=== PATIENT | male | born 1965 | race Caucasian/White ===

== ENCOUNTER → 2018-03-15 07:05 | Outpatient (CLI) | payer BC, SELFPAY ==
[2018-03-15 08:40] LABS: Ferritin 97 ng/mL (8-388)
== END ==
PROVIDERS: PCP Emergency Medicine; Visit Provider Emergency Medicine
DX: E83.19 Other disorders of iron metabolism (principal)
CPT/HCPCS: 36415; 82728

== ENCOUNTER 2018-04-27 16:32 | Outpatient (REF) | payer BC, SELFPAY ==
[2018-04-27 20:26] LABS: Bilirubin Negative (Negative); Blood Trace-lysed (Negative); Clarity Cloudy; Glucose Negative (Negative); Ketones Negative (Negative); Leukocyte Esterase Negative (Negative); Nitrite Negative (Negative); Specific Gravity 1.025 (1.005-1.025); Urobilinogen 0.2 EU/dL (Up TO 0.2); pH 5.5 (5-8)
[2018-04-27 20:40] LABS: Bacteria Rare HPF (Negative); C & S Indicated? No; Casts Negative LPF (Negative); Crystals Negative HPF (Negative); Epithelial Cells Rare HPF (Negative); Mucus Negative (Negative); RBC 0-2 (0-2); WBC Negative HPF (0-5)
== END 2018-04-27 16:52 ==
LOC: LBN 16:32
PROVIDERS: PCP Emergency Medicine; Visit Provider Emergency Medicine
DX: N42.82 Prostatosis syndrome (principal)
CPT/HCPCS: 81003; 81015

== ENCOUNTER 2018-04-28 06:57 | Outpatient (CLI) | payer BC, SELFPAY ==
[2018-04-29 10:15] LABS: PSA, Screening 1.5 ng/ml (0-3.5)
== END 2018-04-28 07:17 ==
PROVIDERS: PCP Emergency Medicine; Visit Provider Emergency Medicine
DX: N42.82 Prostatosis syndrome (principal); Z12.5 Encounter for screening for malignant neoplasm of prostate
CPT/HCPCS: 36415; 84153

== ENCOUNTER 2018-06-01 07:01 | Outpatient (CLI) | payer BC, SELFPAY ==
[2018-06-01 07:34] LABS: Bilirubin Negative (Negative); Blood Trace-intact (Negative); Clarity Clear; Glucose Negative (Negative); Ketones Negative (Negative); Leukocyte Esterase Negative (Negative); Nitrite Negative (Negative); Specific Gravity 1.025 (1.005-1.025); Urobilinogen 0.2 EU/dL (Up TO 0.2)
[2018-06-01 07:52] LABS: Bacteria Rare HPF (Negative); C & S Indicated? No; Casts Negative LPF (Negative); Crystals Negative HPF (Negative); Epithelial Cells Rare HPF (Negative); Mucus Negative (Negative); RBC 0-2 (0-2); WBC Negative HPF (0-5)
[2018-06-01 09:27] LABS: BUN 19 mg/dL (7-18); CREATININE 1.01 mg/dL (0.70-1.30); Chloride 105 mmol/L (98-107); Glucose 106 mg/dL (70-100); Magnesium 1.9 mg/dL (1.8-2.4); Potassium 4.3 mmol/L (3.5-5.1); Sodium 140 mmol/L (136-145)
== END 2018-06-01 07:21 ==
PROVIDERS: PCP Emergency Medicine; Visit Provider Emergency Medicine
DX: R07.9 Chest pain, unspecified (principal); G89.29 Other chronic pain; R00.2 Palpitations; N41.9 Inflammatory disease of prostate, unspecified
CPT/HCPCS: 36415; 80048; 81003; 81015; 83735

== ENCOUNTER 2018-08-12 08:15 | Outpatient (CLI) | payer BC, SELFPAY ==
[2018-08-12 09:46] LABS: Ferritin 116 ng/mL (8-388)
== END 2018-08-12 08:35 ==
PROVIDERS: PCP Emergency Medicine; Visit Provider Emergency Medicine
DX: E83.119 Hemochromatosis, unspecified (principal)
CPT/HCPCS: 36415; 82728

== ENCOUNTER 2018-12-08 08:53 | Outpatient (CLI) | payer BC, SELFPAY ==
[2018-12-09 10:06] LABS: PSA, Screening 1.7 ng/ml (0-3.5)
== END 2018-12-08 09:13 ==
PROVIDERS: PCP Emergency Medicine; Visit Provider Nurse Practitioner Gerontology
DX: Z80.42 Family history of malignant neoplasm of prostate (principal); Z12.5 Encounter for screening for malignant neoplasm of prostate
CPT/HCPCS: 36415; 84153

== ENCOUNTER 2019-01-14 01:12 | Outpatient (CLI) | payer BC, SELFPAY ==
--- NOTE | 2019-01-14 07:24 | DI.US_ITS ---
SYMPTOMS/DIAGNOSIS: ENLARGED PROSTATE WITH LOWER URINARY TRACT SYMPTOMS, BENIGN PROSTATIC HYPERPLASIA, N40.1 ULTRASOUND-GUIDED PROSTATE BIOPSY: Ultrasound was provided for Dr. Moreland while performing a prostate biopsy. The prostate volume is calculated at 60 cc. Please see procedure note for details.
--- NOTE | 2019-01-14 15:00 | PROST_PTH ---
PATIENT: Khai Coyne LOC: [facility] U#:[id number] AGE/SX: 53/M ROOM: RE01/14/[address]: Vera Castellanos DNP : 1965 BED: DIS: 01/14/2019 SPEC #: [id number] RECD: 01/14/19 16:53 STATUS: VERÓNICA REDre #: [id number] SELINA: 01/14/19 15:[address]: Vera Castellanos DEPT: Surgical Specimen RECD BY: Beba Magana ENTERED: 01/14/19 16:54 SP TYPE: PROST OTHR DR: Amos Guzman DO Tissues: 1 - PROSTATE NEEDLE BIOPSY 2 - PROSTATE NEEDLE BIOPSY 3 - PROSTATE NEEDLE BIOPSY 4 - PROSTATE NEEDLE BIOPSY 5 - PROSTATE NEEDLE BIOPSY 6 - PROSTATE NEEDLE BIOPSY 7 - PROSTATE NEEDLE BIOPSY 8 - PROSTATE NEEDLE BIOPSY 9 - PROSTATE NEEDLE BIOPSY 10 - PROSTATE NEEDLE BIOPSY 11 - PROSTATE NEEDLE BIOPSY 12 - PROSTATE NEEDLE BIOPSY Procedures: GROSS AND MICRO LEVEL 4 Comments: [id number]
--- NOTE | 2019-01-14 15:14 | ROE_ITS ---
DATE OF PROCEDURE: January 14, 2019 PREPROCEDURE DIAGNOSIS: Family history of prostate cancer. POSTPROCEDURE DIAGNOSIS: Same. PROCEDURE: Transrectal ultrasound-guided biopsy of the prostate. SURGEON: Kevin Moreland M.D. ANESTHESIA: Local. COMPLICATIONS: None. HISTORY: This is a 53-year-old gentleman who has a strong history of family cancer. The patient him self has a PSA of 1.7. He has an enlarged prostate on digital rectal exam. He presents for ultrasou nd-guided biopsy. PROCEDURE: The patient was brought to the ultrasound suite on 01/14/19. He was given a preoperative antibiotic and mechanical bowel prep. Transrectal imaging of the prostate was performed using a variable megahertz transducer. The prostat e was imaged in transverse and longitudinal planes. The prostatic volume was calculated at 60 cc's. The peripheral zone appeared normal with no hypoechoic areas. Multiple nodular densities were seen w ithin the transition zone. A periprostatic nerve block was then performed using 1% Xylocaine. A total of twelve laterally-direc marc biopsies were taken and sent to Pathology for permanent section. The patient tolerated this procedure well with no complications. He will follow-up in 1 to 2 weeks t o review the surgical pathology. cc: Amos Guzman D.O.
== END 2019-01-14 01:32 ==
PROVIDERS: PCP Emergency Medicine; Visit Provider Nurse Practitioner Gerontology
DX: N40.1 Benign prostatic hyperplasia with lower urinary tract symptoms (principal); N41.0 Acute prostatitis; N41.1 Chronic prostatitis; N42.89 Other specified disorders of prostate; Z80.42 Family history of malignant neoplasm of prostate
CPT/HCPCS: 55700; 76942; 88305

== ENCOUNTER 2019-01-16 07:46 | Inpatient (IN) | payer BC, SELFPAY ==
[2019-01-16] VITALS (57 sets, daily range): BP systolic 113–162; BP diastolic 57–93; PULSE 67–100; RESP 10–25; TEMP 37–38.1; O2SAT 92–98
--- NOTE | 2019-01-16 08:13 | DI.CT_ITS ---
SYMPTOMS/DIAGNOSIS: ABD PAIN, CONCERN FOR POST PROCEDURAL PROSTATE ABSCESS CT OF THE ABDOMEN AND PELVIS: Images were performed from the lung bases through the ischial tuberosities after IV and without oral contrast. The lung bases are clear. The liver shows fatty infiltration. The gallbladder, spleen, pancreas and adrenals are unremarkable. There is no hydronephrosis or urinary tract calculi. There is a small left renal cyst. There is no bowel dilatation. The appendix appears normal. There is mild stranding in the perirectal fat. The prostate appears mildly enlarged. No focal mass, abscess, intraperitoneal or retroperitoneal air is seen. The bladder is unremarkable. There is a small density in the anterior subcutaneous fat superficial to the right rectus muscle, below the level of the umbilicus. This could be related to previous trauma, surgery or injection. There is no drainable abscess. IMPRESSION: Mild stranding in the perirectal fat may be related to recent prostate biopsy. There is no evidence of abscess.
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
[2019-01-16 08:24] LABS: Lactate-non-spesis 1.9 mmol/l (0.6-1.4)
[2019-01-16 08:24] LABS: Bilirubin Negative (Negative); Blood Moderate (Negative); Clarity Clear; Glucose Negative (Negative); Ketones Negative (Negative); Leukocyte Esterase Small (Negative); Nitrite Negative (Negative); Urobilinogen 0.2 EU/dL (Up TO 0.2)
[2019-01-16 08:27] LABS: Abs Immature Grans 0.03 k/cumm (0.0-0.09); Absolute Eosinophil Count 0.27 k/cumm (0.0-0.7); Absolute Lymphocyte Count 1.09 k/cumm (1.2-3.4); Basophils % 0.1; Immature Grans % 0.2; Mean Corp. HGB Concentration 36.2 g/dL (32.0-36.0); Mean Corpuscular Hemoglobin 32.4 pg (27.0-33.0); Mean Corpuscular Volume 89.7 fL (80-95); Mean Platelet Volume 12.3 fL (8.0-11.0); Monocytes % 6.6; Neutrophils % 83.1; Platelet Count 151 x1000/uL (130-400); RBC 5.24 m/cumm (4.50-6.00); RBC Distribution Width 12.5 % (11.8-14.1); White Blood Cell Count 13.57 k/cumm (4.4-10.8)
[2019-01-16 08:28] LABS: Absolute Basophil Count 0.01 k/cumm (0.0-0.2); Absolute Neutrophil Count 11.28 k/cumm (1.2-6.7)
--- NOTE | 2019-01-16 08:31 | INFECTION ---
iv placed labs drawn x1 set of bc obatained pt on library monitor family at bedside urine sample obtained sent to lab for testing will cont to monitor pt closly
[2019-01-16 08:32] LABS: Bacteria Few HPF (Negative); C & S Indicated? Yes; Casts Negative LPF (Negative); Crystals Negative HPF (Negative); Epithelial Cells Rare HPF (Negative); Mucus Negative (Negative)
[2019-01-16 08:42] LABS: ALT 68 U/L (12-78); AST 39 U/L (15-37); Albumin 3.9 g/dL (3.4-5.0); Alkaline Phosphatase 84 U/L (46-116); Anion Gap 7.9 mmol/L (3-11); BUN 11 mg/dL (7-18); Bilirubin, Total 0.7 mg/dL (0.2-1.0); CO2 28.1 mmol/L (21.0-32.0); CREATININE 1.05 mg/dL (0.70-1.30); Calcium 8.6 mg/dL (8.5-10.1); Chloride 103 mmol/L (98-107); Glucose 119 mg/dL (70-100); Potassium 4.1 mmol/L (3.5-5.1); Sodium 139 mmol/L (136-145); Total Protein 7.3 g/dL (6.4-8.2)
[2019-01-16] MEDS: Ketorolac 30 MG/ML VIAL IVP (09:06)
[2019-01-16] MEDS: levoFLOXacin 500 MG/100 ML BAG 100 MG IVPB (09:06)
[2019-01-16] MEDS: Normal Saline 1,000 ML 1000 ML IV (09:06)
[2019-01-16] MEDS: Normal Saline Flush 10 ML SYR IVP (09:07)
--- NOTE | 2019-01-16 09:26 | NUR.NOTE ---
ivf infusing pt medicated as per mdo with antibiotics and pain medication Nursing Note:
--- NOTE | 2019-01-16 09:36 | NUR.NOTE ---
pt to ct Nursing Note:
[2019-01-16] MEDS: Omnipaque 350 MG/ML 100 ML BTL IJ (09:52)
--- NOTE | 2019-01-16 10:04 | DI.VRAD_ITS ---
EXAM: CT Abdomen and Pelvis With Contrast EXAM DATE/TIME: 01/16/2019 8:15 AM CLINICAL HISTORY: 53 years old, male; Fever; Abdominal pain TECHNIQUE: Imaging protocol: Axial computed tomography images of the abdomen and pelvis with intravenous contrast. Coronal and sagittal reformatted images were created and reviewed. COMPARISON: US prostate biopsy 01/14/2019 2:22 PM FINDINGS: Liver: Diffuse fatty infiltration of the liver. Gallbladder and bile ducts: Unremarkable. No calcified stones. No ductal dilation. Pancreas: Unremarkable. No ductal dilation. Spleen: Unremarkable. No splenomegaly. Adrenals: Normal. No mass. Kidneys and ureters: Left renal cyst, measuring 17 mm. No left renal stone or hydronephrosis. Unremarkable right kidney and right ureter. Stomach and bowel: Unremarkable. No obstruction. No mucosal thickening. Appendix: No evidence of appendicitis. Intraperitoneal space: Unremarkable. No free air. No significant fluid collection. Vasculature: Unremarkable. No abdominal aortic aneurysm. Lymph nodes: Unremarkable. No enlarged lymph nodes. Bladder: Unremarkable as visualized. Reproductive: Unremarkable as visualized. Subperitoneal space: Minimal hazy density within the perirectal fat likely the sequelae of recent prostate biopsy. Bones/joints: No acute fracture. Soft tissues: Low-density collection measuring 30 mm transverse by 12 mm AP by 13 mm craniocaudad within the subcutaneous tissues of the anterior abdominal wall just superficial to the right rectus abdominis muscle with linear density tracking to the skin. Differential diagnosis includes resolving hematoma, post surgical change with residual fluid and/or scar versus small abscess. Correlate clinically. IMPRESSION: 1. No acute abdominopelvic process. 2. Low-density collection and stranding of the subcutaneous tissues of the anterior abdominal wall to the right of midline. Differential diagnosis includes resolving hematoma, postsurgical scar/fluid versus small abscess. Correlate clinically. 3. Minimal hazy density within the perirectal fat, likely the sequelae of recent prostate biopsy. Dictated and Authenticated by: Dennis Carter MD. Ordering:NIALL Jordan MD
[2019-01-16] MEDS: Acetaminophen 325 MG TAB 650 MG PO ×2 (10:20→16:51)
--- NOTE | 2019-01-16 10:54 | NUR.NOTE ---
pt resting in bed vs on cardiac moitor rest even unlabored pt able to use urinal at bedside family at bedside Nursing Note:
[2019-01-16 12:13] LABS: Lactate-non-spesis 1.6 mmol/l (0.6-1.4)
[2019-01-16] MEDS: Normal Saline 1,000 ML 125 ML IV ×2 (14:37→16:52)
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
--- NOTE | 2019-01-16 16:07 | NUR.NOTE ---
sbar to med surg nurse pt resting in bed ivf infusing no distress noted none stated Nursing Note:
[2019-01-16] MEDS: traMADol 50 MG TAB PO (17:36)
--- NOTE | 2019-01-16 17:46 | NUR.NOTE ---
Nursing Note: Pt to MS floor at 1626 accompanied by his adult daughters. Pt A&Ox3. VSS. Ambulated well from stretcher to bed. Pt c/o / abdominal pain and RASMUSSEN; APAP administered. Pt oriented to MS floor, call escoto, TV, etc. Call escoto within reach. RN will continue to monitor.
[2019-01-16] MEDS: VANCOMYCIN 2,000 MG in Normal Saline 500 ML 250 MG IV (21:11)
[2019-01-17] VITALS (12 sets, daily range): BP systolic 126–177; BP diastolic 73–88; PULSE 62–72; RESP 15–18; TEMP 36.5–38.1; O2SAT 95–100
[2019-01-17] MEDS: traMADol 50 MG TAB PO ×3 (02:16→17:19)
[2019-01-17] MEDS: Normal Saline 1,000 ML 125 ML IV (02:16)
[2019-01-17 06:55] LABS: Abs Immature Grans 0.03 k/cumm (0.0-0.09); Absolute Basophil Count 0.01 k/cumm (0.0-0.2); Absolute Eosinophil Count 0.25 k/cumm (0.0-0.7); Absolute Lymphocyte Count 1.07 k/cumm (1.2-3.4); Absolute Monocyte Count 0.83 k/cumm (0.11-0.7); Basophils % 0.1; Eosinophils % 2.3; HCT 43.4 % (40.0-50.0); HGB 15.3 g/dL (13.5-17.5); Immature Grans % 0.3; Lymphocytes % 9.7; Mean Corp. HGB Concentration 35.3 g/dL (32.0-36.0); Mean Corpuscular Hemoglobin 32.2 pg (27.0-33.0); Mean Corpuscular Volume 91.4 fL (80-95); Mean Platelet Volume 12.3 fL (8.0-11.0); Monocytes % 7.5; Neutrophils % 80.1; Platelet Count 127 x1000/uL (130-400); RBC 4.75 m/cumm (4.50-6.00); RBC Distribution Width 12.6 % (11.8-14.1); White Blood Cell Count 11.05 k/cumm (4.4-10.8)
[2019-01-17 06:56] LABS: Absolute Neutrophil Count 8.85 k/cumm (1.2-6.7)
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
[2019-01-17 07:11] LABS: ALT 41 U/L (12-78); AST 20 U/L (15-37); Albumin 3.1 g/dL (3.4-5.0); Alkaline Phosphatase 73 U/L (46-116); Anion Gap 8.2 mmol/L (3-11); BUN 11 mg/dL (7-18); Bilirubin, Total 0.9 mg/dL (0.2-1.0); CO2 24.8 mmol/L (21.0-32.0); CREATININE 0.96 mg/dL (0.70-1.30); Calcium 8.1 mg/dL (8.5-10.1); Chloride 106 mmol/L (98-107); Glucose 106 mg/dL (70-100); Sodium 139 mmol/L (136-145); Total Protein 6.3 g/dL (6.4-8.2)
[2019-01-17] MEDS: levoFLOXacin 500 MG/100 ML BAG 100 MG IVPB (08:14)
[2019-01-17] MEDS: Omeprazole 20 MG CAPCR PO (08:15)
[2019-01-17] MEDS: Tamsulosin 0.4 MG CAPCR 0.8 MG PO (08:15)
[2019-01-17] MEDS: Enoxaparin 40 MG/0.4 ML SYR SC (08:15)
[2019-01-17 08:52] LABS: Calculated LDL 98; Cholesterol 154 mg/dL (50-200); Ferritin 139 ng/mL (8-388); HDL Cholesterol 37 mg/dL (40-60); Triglyceride 95 mg/dL (30-150)
[2019-01-17] MEDS: VANCOMYCIN 2,000 MG in Normal Saline 500 ML 250 MG IV ×2 (09:30→18:05)
--- NOTE | 2019-01-17 10:33 | PHARADMIT ---
Admission Pharmacy Clinical Review fever, abscess Code Status Full Code Current Weight 129.274 kg Renally Cleared and Narrow Therapeutic Index Meds Crcl 102.0 mL/min current meds okay QTc Value / Action Taken n/a BP Control, Fever BP 166/76 Tmax 38.1 yesterday evening Electrolytes reviewed within normal limits DVT Prophylaxis enoxaparin Opiate Usage / Scheduled Bowel Regimen Ordered prn/prn Plt/SCr for Heparin / Enoxaparin plt 127 SCr 0.96 INR for Warfarin n/a H/H stable, WBC/Bands h/h 15.3/43.4 wbc 11.05 Antibiotic appropriateness levofloxacin, vanco and metronidazole Cultures and Sensitivities one blood culture no growth @ 24 hours, other is pending urine culture pending Surgical ABX d/c within 24 hr n/a DM control / Insulin Dosing BG 106 none Heart Failure (Check EF%) (ZULEYKA's, B-Block, Diuretics) none IV to PO Switch n/a Home Meds Reviewed yes Home Meds Not Ordered ibuprofen, oxybutynin Comments urology consult; watch for micro results
[2019-01-17] MEDS: metroNIDAZOLE 500 MG/100 ML BAG 100 MG IVPB ×2 (11:54→20:42)
--- NOTE | 2019-01-17 14:28 | PGE_ITS ---
Date of Service Date of service: 01/17/19 Time of Service: 14:28 Assessment and Plan (1) Enlarged prostate with lower urinary tract symptoms (LUTS): Current visit: No Status: Acute Recent prostate biopsy on 01/14/[address] Moreland. Strong family history of Prostate Ca. Presented with fever, chills, CT reveals Minimal hazy density within the perirectal fat, likely the sequelae of recent prostate biopsy, and low-density collection and stranding of the subcutaneous tissues of the anterior abdominal wall to the right of midline. Dr. Moreland indicates that the subcutaneous abdominal wall changes seen on CT scan would not be an expected result of the recent procedure, however, he did have a lipoma removed from this area in the last year. Dr. Moreland agrees with broad-spectrum antibiotics until culture results are available. Dr. Moreland notes that the major concern here would be antibiotic resistant bowel curt. The patient received 3 days of Levaquin around the time of the surgery. He is currently on Vanco, Levaquin and Flagyl was added today in light of the concern for resistant bowel curt. Continue flomax. Continue current treatment, follow cultures, Urology to continue to follow. (2) Hemochromatosis: Current visit: No Status: Chronic Hemoglobin and hematocrit stable at 15.3 and 43.4. Continue to follow. (3) Leukocytosis: Current visit: Yes Status: Acute Improving. As above. Continue current regimen, continue to follow cultures. (4) DVT prophylaxis: Current visit: Yes Status: Acute Subcutaneous lovenox. \\ This case was discussed with Dr. Block who is in agreement. Subjective Interval history since last seen: Mr. Coyne reports feeling better today. He denies fever, chills, shakes. He has a headache. He denies cough, shortness of breath, wheezing, chest pain/pressure, palpitations. He reports a poor appetite, no nausea, vomiting or diarrhea. He endorses urinary frequency, some dysuria and hematuria. He was seen by Urology, Dr. Moreland's note indicates that it would be unlikely that he would develop a prosthetic or periprosthetic abscess this soon after his biopsy. He indicates that the subcutaneous abdominal wall changes seen on CT scan would not be an expected result of the recent procedure, however, he did have a lipoma removed from this area in the last year. Dr. Moreland agrees with broad-spectrum antibiotics until culture results are available. Exam Narrative Exam Narrative: General: well appearing, overweight man, appears stated age, alert and oriented, in no acute distress. HEENT: normocephalic, atraumatic, pupils equal and symmetrical, EOMI, mucous membranes moist. Neck: supple, no JVD. Respiratory: respirations even and unlabored, lung sounds clear bilaterally. Cardiovascular: heart has regular rate and rhythm, no murmur appreciated. GI: round abdomen, normoactive bowel sounds, soft, nontender on palpation. Extremities: no clubbing, cyanosis or edema. Objective Objective Clinical Data: Abnormal lab results 01/17/19 01/17/19 01/17/19 Range/Units 06:20 06:20 06:20 WBC 11.05 H (4.4-10.8) k/cumm Plt Count 127 L (130-400) x1000/uL MPV 12.3 H (8.0-11.0) fL Absolute Neutrophils 8.85 H (1.2-6.7) k/cumm Absolute Lymphocytes 1.07 L (1.2-3.4) k/cumm Absolute Monocytes 0.83 H (0.11-0.7) k/cumm Glucose 106 H (70-100) mg/dL Calcium 8.1 L (8.5-10.1) mg/dL Total Protein 6.3 L (6.4-8.2) g/dL Albumin 3.1 L (3.4-5.0) g/dL HDL Cholesterol 37 L (40-60) mg/dL Vital Signs Temperature 36.6 C 01/17/19 12:21 Temperature Source Tympanic 01/17/19 12:21 Pulse 67 01/17/19 12:21 Pulse Rhythm Irregular 01/17/19 08:20 Pulse 92 H 01/16/19 14:20 Respiratory Rate 18 01/17/19 12:21 Respiratory Effort Non-Labored 01/17/19 08:20 Respiratory Depth Normal 01/17/19 08:20 Respiratory Pattern Normal 01/17/19 08:20 Blood Pressure 166/76 H 01/17/19 12:21 Blood Pressure Mean 82 01/16/19 14:16 Blood Pressure Position Sitting 01/16/19 07:55 Pulse Oximetry 97 01/17/19 12:21 Oxygen Delivery Method Room Air 01/17/19 12:21 Oxygen Flow Rate 0 01/17/19 12:21 Pain Level 4 01/17/19 08:15 Comment 01/17/19 07:15 Intake & Output 01/16/19 01/17/19 01/17/19 23:59 11:59 23:59 Intake Total 2320.833 / 3420.833 2831.25 / 3171.25 340 / 3171.25 Output Total 750 / 750 1225 / 1900 675 / 1900 Balance 1570.833 / 2670.833 1606.25 / 1271.25 -335 / 1271.25 Weight 129.274 kg Intake: IV 1320.833 / 2420.833 1981.25 / 2080.25 100 / 2080.25 Oral 1000 / 1000 850 / 1090 240 / 1090 Output: Urine 750 / 750 1225 / 1900 675 / 1900 Other: Urine Color Yellow Yellow Yellow Urine Appearance Clear Clear Clear Urine Odor Normal Normal Normal Comment Pt reports stop and go when urinating. No other c/o issues. Voiding Methods Urinal Urinal Urinal Laboratory Results WBC 11.05 k/cumm (4.4-10.8) H 01/17/19 06:20 RBC 4.75 m/cumm (4.50-6.00) 01/17/19 06:20 Hgb 15.3 g/dL (13.5-17.5) 01/17/19 06:20 Hct 43.4 % (40.0-50.0) 01/17/19 06:20 MCV 91.4 fL (80-95) 01/17/19 06:20 MCH 32.2 pg (27.0-33.0) 01/17/19 06:20 MCHC 35.3 g/dL (32.0-36.0) 01/17/19 06:20 RDW 12.6 % (11.8-14.1) 01/17/19 06:20 Plt Count 127 x1000/uL (130-400) L 01/17/19 06:20 MPV 12.3 fL (8.0-11.0) H 01/17/19 06:20 Immature Gran % 0.3 01/17/19 06:20 Neutrophils % 80.1 01/17/19 06:20 Lymphocytes % 9.7 01/17/19 06:20 Monocytes % 7.5 01/17/19 06:20 Eosinophils % 2.3 01/17/19 06:20 Basophils % 0.1 01/17/19 06:20 Absolute Neutrophils 8.85 k/cumm (1.2-6.7) H 01/17/19 06:20 Absolute Lymphocytes 1.07 k/cumm (1.2-3.4) L 01/17/19 06:20 Absolute Monocytes 0.83 k/cumm (0.11-0.7) H 01/17/19 06:20 Absolute Eosinophils 0.25 k/cumm (0.0-0.7) 01/17/19 06:20 Absolute Basophils 0.01 k/cumm (0.0-0.2) 01/17/19 06:20 Sodium 139 mmol/L (136-145) 01/17/19 06:20 Potassium 4.0 mmol/L (3.5-5.1) 01/17/19 06:20 Chloride 106 mmol/L (98-107) 01/17/19 06:20 Carbon Dioxide 24.8 mmol/L (21.0-32.0) 01/17/19 06:20 Anion Gap 8.2 mmol/L (3-11) 01/17/19 06:20 BUN 11 mg/dL (7-18) 01/17/19 06:20 Creatinine 0.96 mg/dL (0.70-1.30) 01/17/19 06:20 Estimated GFR/1.73 m2 >= 60.00 (mL/min/1.73m2) 01/17/19 06:20 Glucose 106 mg/dL (70-100) H 01/17/19 06:20 Lactate 1.6 mmol/l (0.6-1.4) H 01/16/19 12:09 Calcium 8.1 mg/dL (8.5-10.1) L 01/17/19 06:20 Ferritin 139 ng/mL (8-388) 01/17/19 06:20 Total Bilirubin 0.9 mg/dL (0.2-1.0) 01/17/19 06:20 AST 20 U/L (15-37) 01/17/19 06:20 ALT 41 U/L (12-78) 01/17/19 06:20 Alkaline Phosphatase 73 U/L (46-116) 01/17/19 06:20 Total Protein 6.3 g/dL (6.4-8.2) L 01/17/19 06:20 Albumin 3.1 g/dL (3.4-5.0) L 01/17/19 06:20 Triglycerides 95 mg/dL (30-150) 01/17/19 06:20 Total Cholesterol 154 mg/dL (50-200) 01/17/19 06:20 LDL Cholesterol, Calc 98 01/17/19 06:20 HDL Cholesterol 37 mg/dL (40-60) L 01/17/19 06:20 Urine Color Yellow (Yellow) 01/16/19 08:15 Urine Clarity Clear 01/16/19 08:15 Urine pH 8.0 (5-8) 01/16/19 08:15 Ur Specific [place] 1.020 (1.005-1.025) 01/16/19 08:15 Urine Protein Negative mg/dL (Negative) 01/16/19 08:15 Urine Ketones Negative mg/dL (Negative) 01/16/19 08:15 Urine Blood Moderate (Negative) H 01/16/19 08:15 Urine Nitrite Negative (Negative) 01/16/19 08:15 Urine Bilirubin Negative (Negative) 01/16/19 08:15 Urine Urobilinogen 0.2 EU/dL (Up TO 0.2) 01/16/19 08:15 Ur Leukocyte Esterase Small (Negative) H 01/16/19 08:15 Urine RBC 10-20 (0-2) H 01/16/19 08:15 Urine WBC 10-20 HPF (0-5) 01/16/19 08:15 Ur Epithelial Cells Rare HPF (Negative) 01/16/19 08:15 Urine Crystals Negative HPF (Negative) 01/16/19 08:15 Urine Bacteria Few HPF (Negative) 01/16/19 08:15 Urine Casts Negative LPF (Negative) 01/16/19 08:15 Urine Mucus Negative (Negative) 01/16/19 08:15 Ur Culture Indicated? Yes 01/16/19 08:15 Urine Glucose Negative mg/dL (Negative) 01/16/19 08:15
[2019-01-17] MEDS: Normal Saline 1,000 ML 100 ML IV (14:32)
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
[2019-01-17] MEDS: Acetaminophen 325 MG TAB 650 MG PO (20:13)
[2019-01-18] MEDS: Normal Saline 1,000 ML 100 ML IV (01:49)
[2019-01-18] MEDS: metroNIDAZOLE 500 MG/100 ML BAG 100 MG IVPB (03:47)
[2019-01-18 03:48] VITALS: BP 129/66; PULSE 71; RESP 16; TEMP 36.5; O2SAT 96
[2019-01-18] MEDS: VANCOMYCIN 2,000 MG in Normal Saline 500 ML 250 MG IV (05:23)
[2019-01-18 07:00] VITALS: BP 147/85; PULSE 64; RESP 16; TEMP 36.4; O2SAT 95
--- NOTE | 2019-01-18 07:01 | PGE_ITS ---
Date of Service Date of service: 01/18/19 Time of Service: 06:56 Assessment and Plan (1) Leukocytosis: Current visit: Yes Status: Acute Clinically, he is improving. As long as his blood cultures show no growth and his WBC is improving, we may want to transition him to oral antibiotics. With negative cultures, it is hard to tell exactly which regimen to use - maybe Levaquin with Flagyl? Subjective Interval history since last seen: He denies chills or rigors. He is voiding a bit better. Exam Narrative Exam Narrative: He does not appear septic or toxic His urine is clear His labs from this morning are pending His initial blood and urine cultures are showing no growth (he had received 3 days of Levaquin before they were obtained) Objective Objective Clinical Data: Abnormal lab results 01/17/19 01/17/19 01/17/19 Range/Units 06:20 06:20 06:20 WBC 11.05 H (4.4-10.8) k/cumm Plt Count 127 L (130-400) x1000/uL MPV 12.3 H (8.0-11.0) fL Absolute Neutrophils 8.85 H (1.2-6.7) k/cumm Absolute Lymphocytes 1.07 L (1.2-3.4) k/cumm Absolute Monocytes 0.83 H (0.11-0.7) k/cumm Glucose 106 H (70-100) mg/dL Calcium 8.1 L (8.5-10.1) mg/dL Total Protein 6.3 L (6.4-8.2) g/dL Albumin 3.1 L (3.4-5.0) g/dL HDL Cholesterol 37 L (40-60) mg/dL Vital Signs Temperature 36.5 C 01/18/19 03:48 Temperature Source Tympanic 01/18/19 03:48 Pulse 71 01/18/19 03:48 Pulse Rhythm Regular 01/17/19 20:25 Pulse 92 H 01/16/19 14:20 Respiratory Rate 16 01/18/19 03:48 Respiratory Effort Non-Labored 01/17/19 20:25 Respiratory Depth Normal 01/17/19 20:25 Respiratory Pattern Normal 01/17/19 20:25 Blood Pressure 129/66 01/18/19 03:48 Blood Pressure Mean 82 01/16/19 14:16 Blood Pressure Position Sitting 01/16/19 07:55 Pulse Oximetry 96 01/18/19 03:48 Oxygen Delivery Method Room Air 01/18/19 03:48 Oxygen Flow Rate 0 01/18/19 03:48 Pain Level 3 01/17/19 17:19 Comment 01/17/19 11:40 Intake & Output 01/17/19 01/17/19 01/18/19 11:59 23:59 11:59 Intake Total 3071.25 / 5957.917 2886.667 / 5957.917 1010.001 / 1010.001 Output Total 1225 / 4200 2975 / 4200 400 / 400 Balance 1846.25 / 1757.917 -88.333 / 1757.917 610.001 / 610.001 Intake: IV 1981.25 / 3177.917 1196.667 / 3177.917 760.001 / 760.001 Oral 1090 / 2780 1690 / 2780 250 / 250 Output: Urine 1225 / 4200 2975 / 4200 400 / 400 Other: Urine Color Yellow Yellow Yellow Urine Appearance Clear Clear Clear Urine Odor Normal Normal Voiding Methods Urinal Urinal Urinal Laboratory Results WBC 11.05 k/cumm (4.4-10.8) H 01/17/19 06:20 RBC 4.75 m/cumm (4.50-6.00) 01/17/19 06:20 Hgb 15.3 g/dL (13.5-17.5) 01/17/19 06:20 Hct 43.4 % (40.0-50.0) 01/17/19 06:20 MCV 91.4 fL (80-95) 01/17/19 06:20 MCH 32.2 pg (27.0-33.0) 01/17/19 06:20 MCHC 35.3 g/dL (32.0-36.0) 01/17/19 06:20 RDW 12.6 % (11.8-14.1) 01/17/19 06:20 Plt Count 127 x1000/uL (130-400) L 01/17/19 06:20 MPV 12.3 fL (8.0-11.0) H 01/17/19 06:20 Immature Gran % 0.3 01/17/19 06:20 Neutrophils % 80.1 01/17/19 06:20 Lymphocytes % 9.7 01/17/19 06:20 Monocytes % 7.5 01/17/19 06:20 Eosinophils % 2.3 01/17/19 06:20 Basophils % 0.1 01/17/19 06:20 Absolute Neutrophils 8.85 k/cumm (1.2-6.7) H 01/17/19 06:20 Absolute Lymphocytes 1.07 k/cumm (1.2-3.4) L 01/17/19 06:20 Absolute Monocytes 0.83 k/cumm (0.11-0.7) H 01/17/19 06:20 Absolute Eosinophils 0.25 k/cumm (0.0-0.7) 01/17/19 06:20 Absolute Basophils 0.01 k/cumm (0.0-0.2) 01/17/19 06:20 Sodium 139 mmol/L (136-145) 01/17/19 06:20 Potassium 4.0 mmol/L (3.5-5.1) 01/17/19 06:20 Chloride 106 mmol/L (98-107) 01/17/19 06:20 Carbon Dioxide 24.8 mmol/L (21.0-32.0) 01/17/19 06:20 Anion Gap 8.2 mmol/L (3-11) 01/17/19 06:20 BUN 11 mg/dL (7-18) 01/17/19 06:20 Creatinine 0.96 mg/dL (0.70-1.30) 01/17/19 06:20 Estimated GFR/1.73 m2 >= 60.00 (mL/min/1.73m2) 01/17/19 06:20 Glucose 106 mg/dL (70-100) H 01/17/19 06:20 Lactate 1.6 mmol/l (0.6-1.4) H 01/16/19 12:09 Calcium 8.1 mg/dL (8.5-10.1) L 01/17/19 06:20 Ferritin 139 ng/mL (8-388) 01/17/19 06:20 Total Bilirubin 0.9 mg/dL (0.2-1.0) 01/17/19 06:20 AST 20 U/L (15-37) 01/17/19 06:20 ALT 41 U/L (12-78) 01/17/19 06:20 Alkaline Phosphatase 73 U/L (46-116) 01/17/19 06:20 Total Protein 6.3 g/dL (6.4-8.2) L 01/17/19 06:20 Albumin 3.1 g/dL (3.4-5.0) L 01/17/19 06:20 Triglycerides 95 mg/dL (30-150) 01/17/19 06:20 Total Cholesterol 154 mg/dL (50-200) 01/17/19 06:20 LDL Cholesterol, Calc 98 01/17/19 06:20 HDL Cholesterol 37 mg/dL (40-60) L 01/17/19 06:20 Urine Color Yellow (Yellow) 01/16/19 08:15 Urine Clarity Clear 01/16/19 08:15 Urine pH 8.0 (5-8) 01/16/19 08:15 Ur Specific [place] 1.020 (1.005-1.025) 01/16/19 08:15 Urine Protein Negative mg/dL (Negative) 01/16/19 08:15 Urine Ketones Negative mg/dL (Negative) 01/16/19 08:15 Urine Blood Moderate (Negative) H 01/16/19 08:15 Urine Nitrite Negative (Negative) 01/16/19 08:15 Urine Bilirubin Negative (Negative) 01/16/19 08:15 Urine Urobilinogen 0.2 EU/dL (Up TO 0.2) 01/16/19 08:15 Ur Leukocyte Esterase Small (Negative) H 01/16/19 08:15 Urine RBC 10-20 (0-2) H 01/16/19 08:15 Urine WBC 10-20 HPF (0-5) 01/16/19 08:15 Ur Epithelial Cells Rare HPF (Negative) 01/16/19 08:15 Urine Crystals Negative HPF (Negative) 01/16/19 08:15 Urine Bacteria Few HPF (Negative) 01/16/19 08:15 Urine Casts Negative LPF (Negative) 01/16/19 08:15 Urine Mucus Negative (Negative) 01/16/19 08:15 Ur Culture Indicated? Yes 01/16/19 08:15 Urine Glucose Negative mg/dL (Negative) 01/16/19 08:15
[2019-01-18 07:12] LABS: Abs Immature Grans 0.01 k/cumm (0.0-0.09); Absolute Basophil Count 0.02 k/cumm (0.0-0.2); Absolute Eosinophil Count 0.56 k/cumm (0.0-0.7); Absolute Lymphocyte Count 1.01 k/cumm (1.2-3.4); Absolute Neutrophil Count 4.32 k/cumm (1.2-6.7); Basophils % 0.3; Eosinophils % 8.6; HGB 14.7 g/dL (13.5-17.5); Immature Grans % 0.2; Lymphocytes % 15.5; Mean Corpuscular Hemoglobin 32.1 pg (27.0-33.0); Mean Corpuscular Volume 91.7 fL (80-95); Monocytes % 9.2; Neutrophils % 66.2; Platelet Count 122 x1000/uL (130-400); RBC 4.58 m/cumm (4.50-6.00); RBC Distribution Width 12.6 % (11.8-14.1); White Blood Cell Count 6.52 k/cumm (4.4-10.8)
[2019-01-18 07:42] LABS: ALT 38 U/L (12-78); AST 19 U/L (15-37); Albumin 2.9 g/dL (3.4-5.0); Alkaline Phosphatase 68 U/L (46-116); BUN 11 mg/dL (7-18); Bilirubin, Total 0.7 mg/dL (0.2-1.0); CREATININE 1.05 mg/dL (0.70-1.30); Calcium 8.2 mg/dL (8.5-10.1); Chloride 105 mmol/L (98-107); Glucose 106 mg/dL (70-100); Sodium 139 mmol/L (136-145); Total Protein 6.3 g/dL (6.4-8.2)
[2019-01-18] MEDS: Tamsulosin 0.4 MG CAPCR 0.8 MG PO (07:43)
[2019-01-18] MEDS: Omeprazole 20 MG CAPCR PO (07:43)
[2019-01-18] MEDS: Enoxaparin 40 MG/0.4 ML SYR SC (07:44)
--- NOTE | 2019-01-18 07:52 | PDOC.CMPRO ---
- If Service Date Differs Date of service: 01/18/19 Time of Service: 07:52 Care Management Progress Note S/O: Cedric was sitting up in the chair when CM came to visit. His daughter was visiting and they were laughing and conversing animatedly. Cedric states he feels much better and hopes he can be discharged later today. Since he was febrile again last night, per MD, he may need to stay one more night. His blood and urine cultures remain negative at 48 hours. A: Cedric is a very pleasant gentleman admitted to [facility] on 01/16/19 with an enlarged prostate and lower urinary tract symptoms. P: Cedric is undergoing testing to ascertain if he has a UTI. He will likely be discharged home when he has been afebrile for 24 hours and culture results are final. he will not need any new services. CM will continue to provide support to patient, family and discharge planning process.
[2019-01-18] MEDS: levoFLOXacin 500 MG/100 ML BAG 100 MG IVPB (09:35)
[2019-01-18 11:30] VITALS: BP 144/77; PULSE 61; RESP 16; TEMP 36.3; O2SAT 100
[2019-01-18] MEDS: metroNIDAZOLE 500 MG TAB PO ×2 (12:56→20:07)
[2019-01-18 13:44] LABS: Vancomycin, Trough 14.5 ug/mL (10.0-20.0)
--- NOTE | 2019-01-18 14:12 | W.PM.PROGNOT ---
Date of Service Date of service: 01/18/19 Time of Service: 14:12 Assessment and Plan (1) Enlarged prostate with lower urinary tract symptoms (LUTS): Current visit: No Status: Acute Recent prostate biopsy on 01/14/[address] Moreland. Strong family history of Prostate Ca. Presented with fever, chills, CT revealed Minimal hazy density within the perirectal fat, likely the sequelae of recent prostate biopsy, and low-density collection and stranding of the subcutaneous tissues of the anterior abdominal wall to the right of midline. Dr. Moreland indicates that the subcutaneous abdominal wall changes seen on CT scan would not be an expected result of the recent procedure, however, he did have a lipoma removed from this area in the last year. He has been on broad-spectrum antibiotics pending culture results His cultures have yielded no growth to date. Dr. Moreland notes that the major concern here would be antibiotic resistant bowel curt. The patient received 3 days of Levaquin around the time of the surgery. He has been on Vanco, Levaquin and Flagyl was added in light of the concern for resistant bowel curt. Continue flomax. He has been seen by Dr. Moreland who agrees with transition to oral antibiotics. He has been changed to PO flagyl and levaquin. Monitor overnight. If he remains afebrile, he may be discharged home on oral antibiotics with Urology follow up. (2) Hemochromatosis: Current visit: No Status: Chronic Hemoglobin and hematocrit stable. Continue to follow. (3) Leukocytosis: Current visit: Yes Status: Acute Resolved. Continue current regimen, continue to follow cultures. (4) DVT prophylaxis: Current visit: Yes Status: Acute Subcutaneous lovenox. \\ This case was discussed with Dr. Block who is in agreement. Subjective Interval history since last seen: Mr. Coyne reports feeling better. He was hoping to be discharged today, however, he had a fever last night. He is afebrile this morning. He has been changed to oral antibiotics. He no longer reports a headache, he denies cough, shortness of breath, wheezing, chest pain/pressure, palpitations. He reports that his appetite has improved, he is eating and drinking without nausea, vomiting or diarrhea. He endorses urinary frequency, some dysuria, the hematuria has resolved. His blood and urine cultures have yielded no growth do date. He is also being followed by Urology. Exam Narrative Exam Narrative: General: well appearing, overweight man, appears stated age, alert and oriented, in no acute distress. Ambulating in his room. HEENT: normocephalic, atraumatic, pupils round and symmetrical, EOMI, mucous membranes moist. Neck: supple, no JVD. Respiratory: respirations even and unlabored, lung sounds clear bilaterally. Cardiovascular: heart has regular rate and rhythm, no murmur appreciated. GI: round abdomen, normoactive bowel sounds, soft, nontender on palpation. Extremities: no clubbing, cyanosis or edema. Objective Objective Clinical Data: Abnormal lab results 01/18/19 01/18/19 Range/Units 06:18 06:18 Plt Count 122 L (130-400) x1000/uL MPV 12.0 H (8.0-11.0) fL Absolute Lymphocytes 1.01 L (1.2-3.4) k/cumm Glucose 106 H (70-100) mg/dL Calcium 8.2 L (8.5-10.1) mg/dL Total Protein 6.3 L (6.4-8.2) g/dL Albumin 2.9 L (3.4-5.0) g/dL Vital Signs Temperature 36.3 C L 01/18/19 11:30 Temperature Source Tympanic 01/18/19 11:30 Pulse 61 01/18/19 11:30 Pulse Rhythm Irregular 01/18/19 07:59 Pulse 92 H 01/16/19 14:20 Respiratory Rate 16 01/18/19 11:30 Respiratory Effort Non-Labored 01/18/19 07:59 Respiratory Depth Normal 01/18/19 07:59 Respiratory Pattern Normal 01/18/19 07:59 Blood Pressure 144/77 H 01/18/19 11:30 Blood Pressure Mean 82 01/16/19 14:16 Blood Pressure Position Sitting 01/16/19 07:55 Pulse Oximetry 100 01/18/19 11:30 Oxygen Delivery Method Room Air 01/18/19 11:30 Oxygen Flow Rate 0 01/18/19 11:30 Pain Level 0 01/18/19 11:30 Comment 01/17/19 11:40 Intake & Output 01/17/19 01/18/19 01/18/19 23:59 11:59 23:59 Intake Total 2886.667 / 5957.917 1730.001 / 1850.001 120 / 1850.001 Output Total 2975 / 4200 400 / 400 Balance -88.333 / 6085.057 1435.001 / 1450.001 120 / 1450.001 Intake: IV 1196.667 / 3177.917 1360.001 / 1360.001 Oral 1690 / 2780 370 / 490 120 / 490 Output: Urine 2975 / 4200 400 / 400 Other: Urine Color Yellow Yellow Urine Appearance Clear Clear Urine Odor Normal Voiding Methods Urinal Urinal Laboratory Results WBC 6.52 k/cumm (4.4-10.8) D 01/18/19 06:18 RBC 4.58 m/cumm (4.50-6.00) 01/18/19 06:18 Hgb 14.7 g/dL (13.5-17.5) 01/18/19 06:18 Hct 42.0 % (40.0-50.0) 01/18/19 06:18 MCV 91.7 fL (80-95) 01/18/19 06:18 MCH 32.1 pg (27.0-33.0) 01/18/19 06:18 MCHC 35.0 g/dL (32.0-36.0) 01/18/19 06:18 RDW 12.6 % (11.8-14.1) 01/18/19 06:18 Plt Count 122 x1000/uL (130-400) L 01/18/19 06:18 MPV 12.0 fL (8.0-11.0) H 01/18/19 06:18 Immature Gran % 0.2 01/18/19 06:18 Neutrophils % 66.2 01/18/19 06:18 Lymphocytes % 15.5 01/18/19 06:18 Monocytes % 9.2 01/18/19 06:18 Eosinophils % 8.6 01/18/19 06:18 Basophils % 0.3 01/18/19 06:18 Absolute Neutrophils 4.32 k/cumm (1.2-6.7) 01/18/19 06:18 Absolute Lymphocytes 1.01 k/cumm (1.2-3.4) L 01/18/19 06:18 Absolute Monocytes 0.60 k/cumm (0.11-0.7) 01/18/19 06:18 Absolute Eosinophils 0.56 k/cumm (0.0-0.7) 01/18/19 06:18 Absolute Basophils 0.02 k/cumm (0.0-0.2) 01/18/19 06:18 Sodium 139 mmol/L (136-145) 01/18/19 06:18 Potassium 4.0 mmol/L (3.5-5.1) 01/18/19 06:18 Chloride 105 mmol/L (98-107) 01/18/19 06:18 Carbon Dioxide 28.0 mmol/L (21.0-32.0) 01/18/19 06:18 Anion Gap 6.0 mmol/L (3-11) 01/18/19 06:18 BUN 11 mg/dL (7-18) 01/18/19 06:18 Creatinine 1.05 mg/dL (0.70-1.30) 01/18/19 06:18 Estimated GFR/1.73 m2 >= 60.00 (mL/min/1.73m2) 01/18/19 06:18 Glucose 106 mg/dL (70-100) H 01/18/19 06:18 Lactate 1.6 mmol/l (0.6-1.4) H 01/16/19 12:09 Calcium 8.2 mg/dL (8.5-10.1) L 01/18/19 06:18 Ferritin 139 ng/mL (8-388) 01/17/19 06:20 Total Bilirubin 0.7 mg/dL (0.2-1.0) 01/18/19 06:18 AST 19 U/L (15-37) 01/18/19 06:18 ALT 38 U/L (12-78) 01/18/19 06:18 Alkaline Phosphatase 68 U/L (46-116) 01/18/19 06:18 Total Protein 6.3 g/dL (6.4-8.2) L 01/18/19 06:18 Albumin 2.9 g/dL (3.4-5.0) L 01/18/19 06:18 Triglycerides 95 mg/dL (30-150) 01/17/19 06:20 Total Cholesterol 154 mg/dL (50-200) 01/17/19 06:20 LDL Cholesterol, Calc 98 01/17/19 06:20 HDL Cholesterol 37 mg/dL (40-60) L 01/17/19 06:20 Urine Color Yellow (Yellow) 01/16/19 08:15 Urine Clarity Clear 01/16/19 08:15 Urine pH 8.0 (5-8) 01/16/19 08:15 Ur Specific [place] 1.020 (1.005-1.025) 01/16/19 08:15 Urine Protein Negative mg/dL (Negative) 01/16/19 08:15 Urine Ketones Negative mg/dL (Negative) 01/16/19 08:15 Urine Blood Moderate (Negative) H 01/16/19 08:15 Urine Nitrite Negative (Negative) 01/16/19 08:15 Urine Bilirubin Negative (Negative) 01/16/19 08:15 Urine Urobilinogen 0.2 EU/dL (Up TO 0.2) 01/16/19 08:15 Ur Leukocyte Esterase Small (Negative) H 01/16/19 08:15 Urine RBC 10-20 (0-2) H 01/16/19 08:15 Urine WBC 10-20 HPF (0-5) 01/16/19 08:15 Ur Epithelial Cells Rare HPF (Negative) 01/16/19 08:15 Urine Crystals Negative HPF (Negative) 01/16/19 08:15 Urine Bacteria Few HPF (Negative) 01/16/19 08:15 Urine Casts Negative LPF (Negative) 01/16/19 08:15 Urine Mucus Negative (Negative) 01/16/19 08:15 Ur Culture Indicated? Yes 01/16/19 08:15 Urine Glucose Negative mg/dL (Negative) 01/16/19 08:15 Vancomycin Trough 14.5 ug/mL (10.0-20.0) 01/18/19 13:10
[2019-01-18 15:53] VITALS: BP 124/69; PULSE 55; RESP 18; TEMP 36.8; O2SAT 99
--- NOTE | 2019-01-18 16:13 | CMPROGNOTE_ITS ---
- If Service Date Differs Date of service: 01/18/19 Time of Service: 07:52 Care Management Progress Note S/O: Cedric was sitting up in the chair when CM came to visit. His daughter was visiting and they were laughing and conversing animatedly. Cedric states he feels much better and hopes he can be discharged later today. Since he was febrile again last night, per MD, he may need to stay one more night. His blood and urine cultures remain negative at 48 hours. A: Cedric is a very pleasant gentleman admitted to [facility] on 01/16/19 with an enlarged prostate and lower urinary tract symptoms. P: Cedric is undergoing testing to ascertain if he has a UTI. He will likely be discharged home when he has been afebrile for 24 hours and culture results are final. he will not need any new services. CM will continue to provide support to patient, family and discharge planning process.
[2019-01-18 19:15] VITALS: BP 137/83; PULSE 68; RESP 16; TEMP 37; O2SAT 99
[2019-01-18] MEDS: Normal Saline Flush 10 ML SYR IVP (20:08)
[2019-01-18 23:25] VITALS: BP 138/75; PULSE 65; RESP 18; TEMP 36.8; O2SAT 96
[2019-01-19] VITALS (9 sets, daily range): BP systolic 131–152; BP diastolic 72–92; PULSE 36–73; RESP 16–18; TEMP 36.3–37.3; O2SAT 96–98
[2019-01-19] MEDS: metroNIDAZOLE 500 MG TAB PO ×2 (03:55→12:31)
[2019-01-19 06:53] LABS: Abs Immature Grans 0.02 k/cumm (0.0-0.09); Absolute Basophil Count 0.02 k/cumm (0.0-0.2); Absolute Lymphocyte Count 1.24 k/cumm (1.2-3.4); Absolute Monocyte Count 0.63 k/cumm (0.11-0.7); Absolute Neutrophil Count 4.36 k/cumm (1.2-6.7); Basophils % 0.3; HGB 15.5 g/dL (13.5-17.5); Immature Grans % 0.3; Lymphocytes % 17.8; Mean Corpuscular Hemoglobin 32.3 pg (27.0-33.0); Mean Corpuscular Volume 89.6 fL (80-95); Mean Platelet Volume 12.2 fL (8.0-11.0); Neutrophils % 62.6; Platelet Count 148 x1000/uL (130-400); RBC Distribution Width 12.4 % (11.8-14.1); White Blood Cell Count 6.97 k/cumm (4.4-10.8)
[2019-01-19 07:25] LABS: ALT 45 U/L (12-78); AST 24 U/L (15-37); Alkaline Phosphatase 72 U/L (46-116); Anion Gap 8.6 mmol/L (3-11); BUN 14 mg/dL (7-18); Bilirubin, Total 0.4 mg/dL (0.2-1.0); CO2 24.4 mmol/L (21.0-32.0); CREATININE 1.01 mg/dL (0.70-1.30); Calcium 8.4 mg/dL (8.5-10.1); Chloride 106 mmol/L (98-107); Glucose 113 mg/dL (70-100); Sodium 139 mmol/L (136-145); Total Protein 6.7 g/dL (6.4-8.2)
[2019-01-19] MEDS: levoFLOXacin 500 MG TAB PO (10:38)
[2019-01-19] MEDS: Tamsulosin 0.4 MG CAPCR 0.8 MG PO (10:38)
[2019-01-19] MEDS: Enoxaparin 40 MG/0.4 ML SYR SC (10:39)
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
--- NOTE | 2019-01-19 15:42 | PDOC.CMDIS ---
- If Service Date Differs Date of service: 01/19/19 Time of Service: 15:42 LACE Index Scoring Tool - Questions: Length of Stay (in days): 3 Acuity (Admit via E.D.?): Yes E.D. Visits: 1 - Answers: Total Score: 7 Risk of Readmission: Low Risk Care Management Discharge Reason for Hospitalization: Enlarged prostate with UTI Discharge Plan: Cedric will be discharged home with no new services. He will follow up with his PCP and discharge plan of care. He will be transported via private vehicle with family.
--- NOTE | 2019-01-19 16:25 | NUR.NOTE ---
Nursing Note: 01/19/[address] Block and Lupe Ro CUSTOMER RELATIONS COORDINATOR. Providers decline telemetry for the patient at this time.
== END 2019-01-19 16:03 | disposition home or self-care (01) | DRG 864 ==
LOC: ER 15:54 → MS 16:25
PROVIDERS: Nurse Practitioner; Admitting Provider Nurse Practitioner Family; Emergency Provider Nurse Practitioner Family; PCP Emergency Medicine; Visit Provider Nurse Practitioner Family
DX: R50.9 Fever, unspecified (principal); D72.829 Elevated white blood cell count, unspecified; Z98.890 Other specified postprocedural states; R93.5 Abnormal findings on diagnostic imaging of other abdominal regions, including retroperitoneum; N40.1 Benign prostatic hyperplasia with lower urinary tract symptoms; R39.11 Hesitancy of micturition; R35.0 Frequency of micturition; E83.119 Hemochromatosis, unspecified; R00.1 Bradycardia, unspecified; I49.3 Ventricular premature depolarization; Z80.42 Family history of malignant neoplasm of prostate
CPT/HCPCS: 36410; 36415; 80053; 80061; 83721; 87040; 96361; 96365; 99223; 99231; 99232; 99239; 99252; 99285; J1650; 74177; 80202; 81003; 81015; 82728; 83605; 85025; 87086; 93005; 93010; 93225; 99284; J1885; J1956; J3490

== ENCOUNTER 2019-01-21 18:20 | Outpatient (CLI) | payer BC, SELFPAY ==
--- NOTE | 2019-01-24 11:22 | HOLTER_ITS ---
DATE OF DICTATION: January 24, 2019 48-HOUR STUDY Baseline rhythm sinus. Very frequent PAC, often in bigeminal pattern. Ten bursts of SVT, longest 5-beat duration, fastest 1 27 bpm. No atrial fibrillation. Frequent single PVC, 995 total, 0.5% of total beat. Two couplet. No VT. No bradycardia. No symptoms. Average heart rate 73 bpm, range 56-122 bpm.
== END 2019-01-21 18:40 ==
PROVIDERS: PCP Emergency Medicine; Visit Provider Emergency Medicine
DX: I49.1 Atrial premature depolarization (principal); I47.1 Supraventricular tachycardia; I49.3 Ventricular premature depolarization
CPT/HCPCS: 93226

== ENCOUNTER 2019-02-04 08:15 | Outpatient (CLI) | payer BC, SELFPAY ==
--- NOTE | 2019-02-04 09:30 | DI.RAD_ITS ---
SYMPTOM/DIAGNOSIS: DYSPNEA ON EXERTION, R06.09 PA AND LATERAL CHEST: Comparison is made with 04/21/16. The heart is normal in size. The lungs are clear. The mediastinal structures and pleura appear intact. CONCLUSION: Normal chest.
[2019-02-04 09:48] LABS: Abs Immature Grans 0.01 k/cumm (0.0-0.09); Absolute Basophil Count 0.02 k/cumm (0.0-0.2); Absolute Lymphocyte Count 1.51 k/cumm (1.2-3.4); Absolute Monocyte Count 0.53 k/cumm (0.11-0.7); Absolute Neutrophil Count 4.13 k/cumm (1.2-6.7); Basophils % 0.3; Eosinophils % 4.6; HCT 45.3 % (40.0-50.0); Immature Grans % 0.2; Lymphocytes % 23.2; Mean Corp. HGB Concentration 35.3 g/dL (32.0-36.0); Mean Corpuscular Hemoglobin 31.4 pg (27.0-33.0); Mean Corpuscular Volume 88.8 fL (80-95); Mean Platelet Volume 12.2 fL (8.0-11.0); Monocytes % 8.2; Neutrophils % 63.5; Platelet Count 177 x1000/uL (130-400); RBC Distribution Width 12.6 % (11.8-14.1)
[2019-02-04 10:38] LABS: Albumin 3.6 g/dL (3.4-5.0); Alkaline Phosphatase 65 U/L (46-116); Anion Gap 10.1 mmol/L (3-11); BUN 18 mg/dL (7-18); Bilirubin, Total 0.6 mg/dL (0.2-1.0); C-Reactive Protein 0.13 mg/dL (0.0-0.3); CO2 24.9 mmol/L (21.0-32.0); CREATININE 1.04 mg/dL (0.70-1.30); Chloride 105 mmol/L (98-107); Glucose 101 mg/dL (70-100); Potassium 4.2 mmol/L (3.5-5.1); Sodium 140 mmol/L (136-145); TSH 1.32 uIU/mL (0.358-3.74); Total Protein 6.8 g/dL (6.4-8.2)
[2019-02-04 11:12] LABS: ALT 80 U/L (12-78); AST 39 U/L (15-37); Ferritin 114 ng/mL (8-388)
[2019-02-04 11:21] LABS: ESR 10 MM/HR (1-20)
[2019-02-07 10:11] LABS: Rheumatoid Factor 9 IU/mL (<12.5)
[2019-02-07 11:50] LABS: Lyme Ab w Rflx to Lyme Confirm Positive
[2019-02-09 19:48] LABS: IgG Band(s) SEE COMMENTS kDa; IgG Immunoblot Negative; IgM Immunoblot Positive; Immunoblot Interpretation SEE COMMENTS
== END 2019-02-04 08:35 ==
PROVIDERS: PCP Emergency Medicine; Visit Provider Emergency Medicine
DX: E03.9 Hypothyroidism, unspecified; M25.50 Pain in unspecified joint; E83.119 Hemochromatosis, unspecified; R06.9 Unspecified abnormalities of breathing
CPT/HCPCS: 36415; 80053; 85652; 86617; 71046; 82728; 84443; 85025; 86140; 86431; 86618

== ENCOUNTER 2019-02-07 00:23 | Outpatient (CLI) | payer BC, SELFPAY ==
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
== END 2019-02-07 00:43 ==
PROVIDERS: PCP Emergency Medicine; Visit Provider Emergency Medicine
DX: R06.02 Shortness of breath (principal); R06.09 Other forms of dyspnea; E78.5 Hyperlipidemia, unspecified; I10 Essential (primary) hypertension; F17.290 Nicotine dependence, other tobacco product, uncomplicated; Z82.49 Family history of ischemic heart disease and other diseases of the circulatory system
CPT/HCPCS: 93017

== ENCOUNTER 2019-02-24 00:27 | Outpatient (CLI) | payer BC, SELFPAY ==
--- NOTE | 2019-02-24 13:50 | MERGE_ITS ---
*[facility]* *[facility]* [address] [place] [address] Date of study: 02/24/2019 Transthoracic Echocardiography M-mode, complete 2D, complete spectral Doppler, and color Doppler *STUDY CONCLUSIONS* Summary: 1. Left ventricle: The cavity size was at the upper limits of normal. Wall thickness was increased in a pattern of mild LVH. Systolic function was normal. The estimated ejection fraction was 55-60%. Wall motion was normal; there were no regional wall motion abnormalities. 2. Left atrium: The atrium was mildly dilated. 3. Right ventricle: The cavity size was at the upper limits of normal. Wall thickness was normal. Systolic function was low normal. 4. Right atrium: The atrium was mildly dilated. 5. Pulmonary arteries: Pulmonary systolic pressure was mildly increased. PA peak pressure: 41mm Hg (S). *PATIENT PRESENTATION* Height: 185.4cm (73in ) S/D Pressure: 128 / 68 Weight: 122.5kg (269.4lb ) BSA: 2.55m^2 Test start time: 02:00 PM. Test stop time: 03:00 PM. PERFORMING Unknown CONSULTING Joseph Lugo ORDERING Joseph Lugo REFERRING Joseph Lugo PERFORMING [facility] INDUSTRIAL RELATIONS ANALYST RT Tracy Aguillon)(ROSANNA)SHARIF *PROCEDURE DATA* Procedure information: This study was interpreted by [facility]. Pertinent images and digital data are archived for permanent storage and are available for subsequent review. Comparison was made to the study of 04/21/2016. Study status: Routine. Transthoracic echocardiography. M-mode, complete 2D, complete spectral Doppler, and color Doppler. A Transthoracic Echocardiogram was performed. Scanning was performed from the parasternal, apical, subcostal, and suprasternal notch acoustic windows. Images were obtained using an [id number] cardiac ultrasound machine. Image quality was adequate. Study completion: The patient tolerated the procedure well. History: PMH: Cardiomyopathy. *CARDIAC ANATOMY* Left ventricle: The cavity size was at the upper limits of normal. Wall thickness was increased in a pattern of mild LVH. Systolic function was normal. The estimated ejection fraction was 55-60%. Wall motion was normal; there were no regional wall motion abnormalities. Aortic valve: Trileaflet; mildly thickened, mildly calcified leaflets. Mobility was not restricted. Doppler: Transvalvular velocity was minimally increased. There was no stenosis. There was no significant regurgitation. VTI ratio of LVOT to aortic valve: 0.72. Valve area (VTI): 2.3cm^2. Indexed valve area (VTI): 0.9cm^2/m^2. Peak velocity ratio of LVOT to aortic valve: 0.67. Valve area (Vmax): 2.2cm^2. Indexed valve area (Vmax): 0.9cm^2/m^2. Mean velocity ratio of LVOT to aortic valve: 0.64. Valve area (Vmean): 2.1cm^2. Indexed valve area (Vmean): 0.8cm^2/m^2. Mean gradient (S): 7.5mm Hg. Peak gradient (S): 12.5mm Hg. Aorta: Aortic root: The aortic root was normal in size. Ascending aorta: The ascending aorta was normal in size. Aortic arch: The aortic arch was normal in size. Mitral valve: Mildly thickened leaflets. Mobility was not restricted. Doppler: Transvalvular velocity was within the normal range. There was no evidence for stenosis. There was trivial regurgitation. Peak gradient (D): 2.6mm Hg. Left atrium: The atrium was mildly dilated. Right ventricle: The cavity size was at the upper limits of normal. Wall thickness was normal. Systolic function was low normal. Pulmonic valve: Doppler: Transvalvular velocity was within the normal range. There was no evidence for stenosis. There was mild regurgitation. Peak gradient (S): 3.3mm Hg. Tricuspid valve: Structurally normal valve. Doppler: Transvalvular velocity was within the normal range. There was no evidence for stenosis. There was mild regurgitation. Pulmonary artery: Pulmonary systolic pressure was mildly increased. Right atrium: The atrium was mildly dilated. The Eustachian valve appeared prominent. Pericardium: There was no pericardial effusion. Systemic veins: Inferior vena cava: Well visualized. The vessel was patent and mildly dilated in size. The respirophasic diameter changes were in the normal range (greater than or equal to 50%), consistent with normal central venous pressure. Baseline ECG: Normal sinus rhythm. Periodic atrial ectopy in a bigeminal pattern Measurements Left ventricle Value Reference LV ID, ED, PLAX 5.4 cm 3.5 - 6.0 LV ID, ES, PLAX 3.6 cm 2.1 - 4.0 LV PW thickness, ED, PLAX 1.5 cm LV end-diastolic volume, 1-p A2C 206 ml LV ejection fraction, 1-p A2C 67 % LV end-diastolic volume, 1-p A4C 207 ml LV ejection fraction, 1-p A4C 59 % LV e', lateral 0.133 m/sec LV E/e', lateral 6 LV e', medial 0.1 m/sec LV E/e', medial 8 LV e', average 0.117 m/sec LV E/e', average 7 Ventricular septum Value Reference IVS thickness, ED, PLAX 1.4 cm LVOT Value Reference LVOT ID, A-P 2.0 cm LVOT area 3.3 cm^2 LVOT peak velocity, S 1.19 m/sec LVOT mean velocity, S 0.83 m/sec LVOT VTI, S 26.6 cm LVOT peak gradient, S 5.7 mm Hg LVOT mean gradient, S 3.2 mm Hg Stroke volume (SV), LVOT DP 86 ml Stroke index (SV/bsa), LVOT DP 34 ml/m^2 Aortic valve Value Reference Aortic valve peak velocity, S 1.8 m/sec Aortic valve mean velocity, S 1.3 m/sec Aortic valve VTI, S 37.0 cm Aortic mean gradient, S 7.5 mm Hg Aortic peak gradient, S 12.5 mm Hg VTI ratio, LVOT/AV 0.72 Aortic valve area, VTI 2.3 cm^2 Velocity ratio, peak, LVOT/AV 0.67 Aortic valve area, peak velocity 2.2 cm^2 Velocity ratio, mean, LVOT/AV 0.64 Aortic valve area, mean velocity 2.1 cm^2 Aortic valve area/bsa, mean velocity 0.8 cm^2/m^2 Aorta Value Reference Aortic root ID, ED 3.2 cm Ascending aorta ID, A-P, S 3.2 cm Aortic arch ID, innominate-LCCA 3.1 cm 2.0 - 3.6 RVOT Value Reference RVOT VTI, S 22.2 cm Left atrium Value Reference LA ID, A-P, ES 4.3 cm LA ID/bsa, A-P 1.7 cm/m^2 <=2.2 LA volume/bsa, ES, 1-p A4C 32 ml/m^2 LA volume, ES, 2-p 80 ml LA volume/bsa, ES, 2-p 31 ml/m^2 LA/aortic root ratio 1.33 Mitral valve Value Reference Mitral E-wave peak velocity 0.81 m/sec Mitral A-wave peak velocity 0.93 m/sec Mitral peak gradient, D 2.6 mm Hg Mitral E/A ratio, peak 0.87 Pulmonary veins Value Reference Pulmonary vein peak velocity, S 0.69 m/sec Pulmonary vein peak velocity, D 0.62 m/sec Pulmonary vein velocity ratio, peak, 1.11 S/D Pulmonary vein A-wave reversal peak 0.32 m/sec velocity Pulmonary vein A-wave reversal 204 ms duration Pulmonary arteries Value Reference PA pressure, S, DP (H) 41 mm Hg <=30 Tricuspid valve Value Reference Tricuspid regurg peak velocity 2.9 m/sec Tricuspid peak RV-RA gradient 33.8 mm Hg Right atrium Value Reference RA area, ES, A4C (H) 22.5 cm^2 8.3 - 19.5 Systemic veins Value Reference Estimated CVP 10 mm Hg Right ventricle Value Reference RV pressure, S, DP (H) 44 mm Hg <=30 Pulmonic valve Value Reference Pulmonic peak gradient, S 3.3 mm Hg Pulmonic regurg velocity, ED 0.91 m/sec Legend: (L) and (H) boom values outside specified reference range. I have personally reviewed the images and have reviewed and edited the reported findings. Electronically signed by Reema Balderas 02/24/2019 16:49
== END 2019-02-24 00:47 ==
PROVIDERS: PCP Emergency Medicine; Visit Provider Student in an Organized Health Care Education/Training Program
DX: I42.9 Cardiomyopathy, unspecified (principal); I51.7 Cardiomegaly; I10 Essential (primary) hypertension
CPT/HCPCS: 93306

== ENCOUNTER 2019-05-12 10:07 | Outpatient (CLI) | payer BC, SELFPAY ==
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
== END 2019-05-12 10:27 ==
PROVIDERS: PCP Emergency Medicine; Visit Provider Nurse Practitioner
DX: M25.532 Pain in left wrist (principal); S69.92XA Unspecified injury of left wrist, hand and finger(s), initial encounter; M19.032 Primary osteoarthritis, left wrist
CPT/HCPCS: 73110

== ENCOUNTER 2019-07-28 07:20 | Outpatient (CLI) | payer BC, SELFPAY ==
[2019-07-29 10:14] LABS: PSA, Diagnostic 1.4 ng/mL (0.0-3.5)
== END 2019-07-28 07:40 ==
PROVIDERS: PCP Emergency Medicine; Visit Provider Urology
DX: N41.1 Chronic prostatitis (principal); Z80.42 Family history of malignant neoplasm of prostate; G89.4 Chronic pain syndrome
CPT/HCPCS: 36415; 84153

== ENCOUNTER 2019-08-22 08:17 | Outpatient (CLI) | payer BC, SELFPAY ==
[2019-08-22 10:33] LABS: Ferritin 77 ng/mL (26-388)
== END 2019-08-22 08:37 ==
PROVIDERS: PCP Emergency Medicine; Visit Provider Emergency Medicine
DX: E83.119 Hemochromatosis, unspecified (principal)
CPT/HCPCS: 36415; 82728

== ENCOUNTER 2019-12-14 07:49 | Outpatient (CLI) | payer BC, SELFPAY ==
--- NOTE | 2019-12-14 08:15 | DI.US_ITS ---
EXAM: US LOWER EXTREMITY VENOUS RT CLINICAL HISTORY: DVT right leg, I82.409 TECHNIQUE: Right lower extremity venous ultrasound performed using grayscale, color-flow, and spectr al Doppler analysis. COMPARISON: No exams were available for comparison FINDINGS: The right common femoral, femoral and popliteal veins demonstrate normal compressibility, augmentatio n, and color Doppler. The posterior tibial veins are patent. The saphenofemoral junction is unremark able. There is no evidence of a Galvez cyst. There is a 1.8 x 0.9 x 2 cm echogenic subcutaneous mass in the medial right thigh. There is a 1.6 x 0.5 x 1.3 cm echogenic mass in the subcutaneous tissues of the posterior right calf. Sonographically these are most suggestive of lipomas. Please correlat e clinically. IMPRESSION: No DVT. DATA REPOSITORY:
[2019-12-14 14:35] LABS: D-Dimer 464 ng/mlFEU (<500)
== END 2019-12-14 08:09 ==
PROVIDERS: PCP Emergency Medicine; Visit Provider Emergency Medicine
DX: I82.401 Acute embolism and thrombosis of unspecified deep veins of right lower extremity (principal); R22.41 Localized swelling, mass and lump, right lower limb
CPT/HCPCS: 36415; 85379; 93971

== ENCOUNTER 2020-02-09 02:46 | Outpatient (CLI) | payer BC, SELFPAY ==
[2020-02-09 13:14] LABS: Ferritin 111 ng/mL (26-388)
[2020-02-10 10:32] LABS: PSA, Diagnostic 1.6 ng/mL (0.0-3.5)
== END 2020-02-09 03:06 ==
PROVIDERS: Urology; PCP Emergency Medicine; Visit Provider Emergency Medicine
DX: E83.110 Hereditary hemochromatosis (principal); G89.4 Chronic pain syndrome; N41.1 Chronic prostatitis; Z80.42 Family history of malignant neoplasm of prostate
CPT/HCPCS: 36415; 82728; 84153

== ENCOUNTER 2020-06-25 02:52 | Outpatient (CLI) | payer BC, SELFPAY ==
[2020-06-26 16:50] LABS: COVID-19 RT-PCR UVMMC Result Negative (Negative)
== END 2020-06-25 03:12 ==
PROVIDERS: PCP Emergency Medicine; Visit Provider Surgery
DX: Z11.59 Encounter for screening for other viral diseases (principal); Z01.818 Encounter for other preprocedural examination
CPT/HCPCS: U0003

== ENCOUNTER 2020-06-28 08:55 | Day surgery (SDC) | payer BC, SELFPAY ==
[2020-06-28 08:57] VITALS: BP 135/79; PULSE 56; RESP 18; TEMP 36.6; O2SAT 98
--- NOTE | 2020-06-28 09:22 | W.PM.DSUDISC ---
Discharge Plan Disposition Patient Disposition: HOME Condition: Good Discharge Details Attending Provider: Miranda Cortes Primary Care Provider: Amos Guzman Home Meds and New Rx's Prescriptions: Continued ibuprofen 800 mg tablet 800 mg PO BID PRN (Reason: pain) Qty: 100 RF: 3 Zyrtec 10 mg capsule 10 mg PO DAILY PRNRF: 0 oxybutynin chloride 5 mg tablet extended release 24hr 5 mg PO DAILY Qty: 30 RF: 12 tamsulosin [Flomax] 0.4 mg capsule 0.8 mg PO DAILY Qty: 180 RF: 4 acetaminophen [Tylenol] 325 MG tablet 650 mg PO Q6H PRN PRNRF: 0 Discharge Instructions Additional Instructions: Findings:lg polyp. no ASA/NSAID's for 7 days Follow up: will send a letter w/ pathology results. repeat scope in 1-3yrs Please call if you develop: fevers >101.5 Nausea or Vomiting Abdominal pain that is not transient DAY SURGERY UNIT POST COLONOSCOPY INSTRUCTIONS 1. Because there will be medication in your system for the next 24 hours, you may feel a little sleepy. Your coordination will be affected. Therefore: a. Do not drive or operate dangerous equipment for 24 hours. b. Do not drink alcohol beverages for 24 hours (not even beer). c. Plan to go home and rest for the day. 2. Generally there are no restrictions on your activity after a day or so has gone by, but you may feel a bit fatigued for a few days. 3 After you arrive home you may have a light meal and return to a normal diet as you can tolerate it without feeling sick to your stomach. 4. After surgery, you may feel pain or discomfort. This should be only transient, but if it persists please contact your doctor. 5. If there are any questions regarding the findings of your procedure, please feel free to contact your doctor. 6. If you are unable to contact your doctor with a problem, contact the hospital at [phone]. 7. Continue all your regular medications unless directed otherwise. I understand the above instructions and have no questions. Signature of Patient or Responsible Adult Escort Date/Time Name of Responsible Adult Escort Signature of Nurse Date/Time Activity:: No lifting over 20 pounds or strenuous activity x72 hours Diet:: Small light meals x24 hours Discharge Orders Discharge Orders: Discharge Order (Routine); Ordered 06/28/20 Ordered By: Miranda Cortes DS: Diagnosis Discharge Diagnosis (1) Colon cancer screening: Status: Acute
--- NOTE | 2020-06-28 09:22 | W.COLOREPORT ---
Date of service: 06/28/20 Time of Service: 09:22 Colonoscopy Report Date of procedure: 06/28/20 Pre-op diagnosis general: CRC screen Post-op diagnosis procedure note: other (polyp) Procedure: polypectomy- hot snare Surgeon: Miranda Cortes Anesthesia proc note operative: GETA Estimated blood loss (mL): 1 Pathology: other Complications: None Disposition: same day Prep: Miralax/Dulcolax Retraction Time: 15 Procedure Description: After informed consent was obtained the patient was taken to the procedure room and placed in a left decubitous position. Monitors were applied and a time out was done. The patients name, date of , procedure, allergies to medications and metal in their body was reviewed. The patient was then sedated. Once sedated and comfortable a rectal exam was done. External exam was normal. Internal exam revealed a normal sphincter tone and no palpable masses. The scope was then introduced and retrofelexed. No internal hemorrhoids were identified. The scope was then advanced to the cecum w/out difficulty. The TI and appendiceal orifice were identified. The prep was good. The scope was then slowly retracted over 15 minutes back into the rectum. Polyps were removed at 30. He had a large 2cm polyp at the 30 cm On a long stalk. This was removed with a hot polypectomy snare. All specimen is retrieved and no bleeding is noted. There are no AVMs or diverticula apparent. The scope was removed and the patient was woken up and taken back to Same day surgery in stable condition. The patient tolerated the procedure well and there were no immediate complications. Follow up: The patient should follow up in 1-2 years, path pd, unless they develop changes in bowel habits or other new gastrointestinal complaints.
[2020-06-28] MEDS: Lactated Ringers 1,000 ML 80 ML IV (09:24)
--- NOTE | 2020-06-28 10:49 | BOWEL_PTH ---
PATIENT: Khai Coyne LOC: [facility] U#:[id number] AGE/SX: 55/M ROOM: RE06/28/[address]: Miranda Cortes : 1965 BED: DIS: 06/28/2020 SPEC #: [id number] RECD: 06/28/20 12:31 STATUS: VERÓNICA REQ #: [id number] SELINA: 06/28/20 10:[address]: Miranda Cortes DEPT: Surgical Specimen RECD BY: Beba Magana ENTERED: 06/28/20 12:31 SP TYPE: Bowel OTHR DR: Amos Guzman DO Tissues: 1 - BIOPSY BOWEL Procedures: GROSS AND MICRO LEVEL 4 Comments: [id number]
[2020-06-28 11:31] VITALS: BP 109/72; PULSE 61; RESP 18; TEMP 36.2; O2SAT 95
[2020-06-28 11:56] VITALS: BP 107/62; PULSE 52; RESP 18; TEMP 36.4; O2SAT 96
== END 2020-06-28 12:37 | disposition home or self-care (01) ==
PROVIDERS: PCP Emergency Medicine; Visit Provider Surgery
PROC: 0DJD8ZZ Inspection of Lower Intestinal Tract, Via Natural or Artificial Opening Endoscopic (ICD-10-PCS; CPT 45378; principal; 2020-06-28 10:00)
DX: Z12.11 Encounter for screening for malignant neoplasm of colon (principal); D12.5 Benign neoplasm of sigmoid colon; I10 Essential (primary) hypertension; G47.33 Obstructive sleep apnea (adult) (pediatric); E78.5 Hyperlipidemia, unspecified; Z86.711 Personal history of pulmonary embolism
CPT/HCPCS: 45385; 88305; J2001

== ENCOUNTER 2020-09-02 08:46 | Emergency (ER) | payer BC, SELFPAY ==
[2020-09-02 08:52] VITALS: BP 160/95; PULSE 59; RESP 16; TEMP 36.3; O2SAT 96
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
--- NOTE | 2020-09-02 09:30 | NUR.NOTE ---
Nursing Note: upon discharge pt had head wrapped with gauze over wound, placed by Dr Gonzalez
== END 2020-09-02 09:30 | disposition home or self-care (01) ==
PROVIDERS: Emergency Provider Emergency Medicine; PCP Emergency Medicine
DX: S01.01XA Laceration without foreign body of scalp, initial encounter (principal); W20.8XXA Other cause of strike by thrown, projected or falling object, initial encounter
CPT/HCPCS: 12004

== ENCOUNTER 2020-09-28 03:25 | Outpatient (CLI) | payer BC, SELFPAY ==
[2020-09-28 09:24] LABS: ALT 81 U/L (16-63); AST 35 U/L (15-37); Albumin 3.9 g/dL (3.4-5.0); Alkaline Phosphatase 84 U/L (46-116); Bilirubin, Total 0.5 mg/dL (0.2-1.0); Ferritin 100 ng/mL (26-388); Total Protein 7.2 g/dL (6.4-8.2)
[2020-09-28 09:33] LABS: Bilirubin, Direct 0.11 mg/dL (0.00-0.20)
[2020-09-28 17:29] LABS: PSA, Diagnostic 1.9 ng/mL (0.0-3.5)
== END 2020-09-28 03:26 | disposition home or self-care (01) ==
LOC: LBO 03:25
PROVIDERS: Urology; PCP Emergency Medicine; Visit Provider Emergency Medicine
DX: E83.110 Hereditary hemochromatosis (principal); N41.1 Chronic prostatitis; Z12.5 Encounter for screening for malignant neoplasm of prostate; Z80.42 Family history of malignant neoplasm of prostate; G89.4 Chronic pain syndrome
CPT/HCPCS: 36415; 80076; 82728; 84153

== ENCOUNTER 2020-10-16 16:04 | Outpatient (REF) | payer BC, SELFPAY ==
[2020-10-16 21:46] LABS: ALT 76 U/L (16-63); AST 40 U/L (15-37); Alkaline Phosphatase 81 U/L (46-116); Bilirubin, Direct 0.2 mg/dL (0.0-0.2); Bilirubin, Total 0.6 mg/dL (0.2-1.0); Total Protein 7.1 g/dL (6.4-8.2)
[2020-10-18 10:16] LABS: Hepatitis C Ab w Rflx HCV PCR Negative (Negative)
== END 2020-10-16 16:05 | disposition home or self-care (01) ==
LOC: LBN 16:04
PROVIDERS: PCP Emergency Medicine; Visit Provider Emergency Medicine
DX: R94.5 Abnormal results of liver function studies (principal)
CPT/HCPCS: 80076; 86803

== ENCOUNTER 2021-01-15 03:17 | Outpatient (CLI) | payer BC, SELFPAY ==
[2021-01-15 14:31] LABS: Ferritin 112 ng/mL (26-388)
== END 2021-01-15 03:18 | disposition home or self-care (01) ==
PROVIDERS: PCP Emergency Medicine; Visit Provider Emergency Medicine
DX: E83.110 Hereditary hemochromatosis (principal)
CPT/HCPCS: 36415; 82728

== ENCOUNTER 2021-02-22 11:15 | Outpatient (CLI) | payer BC, SELFPAY ==
--- NOTE | 2021-02-22 10:00 | DI.RAD_ITS ---
Exam(s) XR ANKLE RT COMPLETE EXAM: XR ANKLE RT COMPLETE CLINICAL HISTORY: eval R ankle pain. TECHNIQUE: 2D digital imaging was performed. COMPARISON: CR RIGHT ANKLE COMPLETE from 06/09/2016 CR RIGHT ANKLE COMPLETE from 06/09/2016 FINDINGS: BONES: There is again is seen a sideplate and screws in the distal right fibula. No acute fracture o r dislocation. No evidence of hardware failure. There is a well corticated osseous density at the t ip of the medial malleolus. There is a small plantar calcaneal spur. No bony destructive lesion is seen. JOINTS: The ankle mortise is normally aligned. SOFT TISSUE: Mild soft tissue swelling about the ankle laterally. IMPRESSION: Mild soft tissue swelling about the ankle. DATA REPOSITORY: RADIATION DOSE DELIVERED:
== END 2021-02-22 11:16 | disposition home or self-care (01) ==
LOC: DIORS 11:15
PROVIDERS: PCP Emergency Medicine; Visit Provider Student in an Organized Health Care Education/Training Program
DX: M79.89 Other specified soft tissue disorders; M25.571 Pain in right ankle and joints of right foot
CPT/HCPCS: 73610

== ENCOUNTER 2021-05-09 02:40 | Outpatient (CLI) | payer BC, SELFPAY ==
[2021-05-09 08:50] LABS: Ferritin 71 ng/mL (26-388)
== END 2021-05-09 02:41 | disposition home or self-care (01) ==
LOC: LBO 02:40
PROVIDERS: PCP Emergency Medicine; Visit Provider Emergency Medicine
DX: E83.110 Hereditary hemochromatosis (principal)
CPT/HCPCS: 36415; 82728

== ENCOUNTER 2021-07-24 10:49 | Outpatient (CLI) | payer BC, SELFPAY ==
[2021-07-24 22:45] LABS: PSA, Diagnostic 2.1 ng/mL (0.0-3.5)
== END 2021-07-24 10:50 | disposition home or self-care (01) ==
LOC: LBO 10:49
PROVIDERS: PCP Emergency Medicine; Visit Provider Urology
DX: Z87.898 Personal history of other specified conditions (principal); R97.20 Elevated prostate specific antigen [PSA]
CPT/HCPCS: 36415; 84153

== ENCOUNTER 2021-12-16 04:11 | Outpatient (CLI) | payer BC, SELFPAY ==
[2021-12-16 12:37] LABS: Abs Immature Grans 0.02 10^3/uL (0.0-0.06); Absolute Basophil Count 0.03 10^3/uL (0.0-0.2); Absolute Lymphocyte Count 1.65 10^3/uL (1.2-3.4); Absolute Monocyte Count 0.58 10^3/uL (0.1-0.8); Absolute Neutrophil Count 5.13 10^3/uL (1.2-6.7); Basophils % 0.4; Eosinophils % 3.9; HCT 48.2 % (40.0-50.0); HGB 16.3 g/dL (13.5-17.5); Immature Grans % 0.3; Lymphocytes % 21.4; MCH 31.2 pg (27.0-33.0); MCHC 33.8 % (32.0-36.0); MCV 92 fL (80-95); Monocytes % 7.5; Neutrophils % 66.5; Platelet Count 172 10^3/uL (130-400); RBC 5.22 10^6/uL (4.36-5.78); RDW-SD 40.9 fL; WBC 7.71 10^3/uL (4.4-10.8)
[2021-12-16 13:48] LABS: Ferritin 129 ng/mL (26-388)
[2021-12-16 17:02] LABS: Calculated LDL 139 mg/dL (<100); Cholesterol 224 mg/dL (<200); HDL Cholesterol 36 mg/dL (40-60); Triglyceride 248 mg/dL (<150)
== END 2021-12-16 04:12 | disposition home or self-care (01) ==
LOC: LBO 04:11
PROVIDERS: Emergency Medicine; PCP Family Medicine; Visit Provider Physical Therapy Assistant
DX: E83.110 Hereditary hemochromatosis (principal); E66.9 Obesity, unspecified
CPT/HCPCS: 36415; 80061; 82728; 85025

== ENCOUNTER 2022-01-06 08:07 | Day surgery (SDC) | payer BC, SELFPAY ==
--- NOTE | 2022-01-06 06:46 | W.COLOREPORT ---
Colonoscopy Report Date of procedure: 01/06/22 Pre-op diagnosis general: Colon Cnancer screening Procedure: colonoscopy Surgeon: Mari Hernandez Anesthesia Type: General:No Airway Complications: None Disposition: same day Indications: The patient is here for Colonoscopy pre-op. His last screening was in 2019 and was remarkable for tubulovillious adenoma. He has no family history of colon cancer. He has not had any bowel habit changes. -Discussed colonoscopy bowel prep as well as the procedure. Discussed possible complications of the procedure to include bleeding, pain, perforation, missed small lesion/polyp, sore throat, aspiration and adverse reaction to the medications. Questions were answered to patient?s satisfaction. No guarantees were implied or given. Prep: Miralax/Dulcolax Procedure Description: After informed consent was obtained the patient was taken to the procedure room and placed in a left decubitous position. Monitors were applied and a time out was done. The patients name, date of , procedure, allergies to medications and metal in their body was reviewed. The patient was then sedated. Once sedated and comfortable a rectal exam was done. External exam was normal. Internal exam revealed a normal sphincter tone and no palpable masses. The prostate []. The scope was then introduced and retro-flexed. [] internal hemorrhoids, polyps or masses were identified on retro-flexion. The scope was then advanced to the cecum [] difficulty. The ileocecal vlave and appendiceal orifice were identified. The prep was []. The scope was then slowly retracted over [] minutes back into the rectum. Polyps were removed at []. There was [] diverticulosis noted. The scope was removed and the patient was woken up and taken back to Same day surgery in stable condition. The patient tolerated the procedure well and there were no immediate complications. Follow up: The patient should follow up in [] years unless they develop changes in bowel habits or other new gastrointestinal complaints.
--- NOTE | 2022-01-06 06:49 | W.PM.DSUDISC ---
Discharge Plan Disposition Patient Disposition: HOME Condition: Good Discharge Details Reason For Visit: Colonoscopy Attending Provider: Mari Hernandze Primary Care Provider: Rosio Maki Home Meds and New Rx's Prescriptions: Continued ibuprofen 800 mg tablet 800 mg PO BID PRN (Reason: pain) Qty: 100 3RF Zyrtec 10 mg capsule 10 mg PO DAILY PRN oxybutynin chloride 5 mg tablet extended release 24hr 5 mg PO DAILY Qty: 90 4RF tamsulosin [Flomax] 0.4 mg capsule 0.8 mg PO DAILY Qty: 180 4RF sertraline 100 mg tablet 100 mg PO DAILY Qty: 90 3RF acetaminophen [Tylenol] 325 MG tablet 650 mg PO Q6H PRN PRN0RF amlodipine 5 mg tablet 5 mg PO HS losartan 25 mg tablet 25 mg PO HS Discontinued bisacodyl [Dulcolax (bisacodyl)] 5 mg tablet,delayed release (DR/EC) 5 mg PO ONCE Qty: 4 0RF Rx Instructions: Take according to provider's instructions for colonoscopy prep. polyethylene glycol 3350 17 gram/dose powder 17 g PO ONCE Qty: 238 0RF Rx Instructions: To be taken as directed by prescriber's office for colonoscopy prep. Discharge Instructions Referrals: Rosio Maki MD [Primary Care Provider] - 01/10/22 7:40 am Activity:: Activity as Tolerated Diet:: As Tolerated Discharge Orders Discharge Orders: Discharge Order (Routine); Ordered 01/06/22 Ordered By: Mari Hernandez
[2022-01-06 08:35] VITALS: BP 129/96; PULSE 55; RESP 16; TEMP 36; O2SAT 99
[2022-01-06] MEDS: Lactated Ringers 1,000 ML 80 ML IV (08:40)
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
[2022-01-06 09:04] VITALS: BMI 39.4
--- NOTE | 2022-01-06 09:15 | RT.EKG_ITS ---
APPROVED REPORT Exam: Resting ECG Reason for Exam: Tachycardia Patient Location: O HR:76 bpm ECG Measurements Heart Rate 76 AXIS [place] [id number] P [id number] QRSd 106 QRS 11 QT 374 T 34 QTc 447 Conclusion Atrial flutter/fibrillation...A-rate 246, multiple Ps
[2022-01-06 09:26] VITALS: BP 125/94; PULSE 86; RESP 19; TEMP 36; O2SAT 98
[2022-01-06 09:58] VITALS: BP 125/94; PULSE 86; RESP 16; TEMP 36; O2SAT 98
[2022-01-06] MEDS: Normal Saline Flush 10 ML SYR IV (09:58)
--- NOTE | 2022-01-06 09:58 | PDOC.ANES ---
Date of service: 01/06/22 Time of Service: 09:59 Anesthesia Note Report Anesthesia Note: Patient had an episode of rapid heart rate after entering the procedure room for an elective colonoscopy. Plan to delay case and return to [facility] for EKG. Patient was found to be in Afib/Flutter and case will be cancelled. Dr. Hernandez alerted and is reaching out the PCP to schedule followup. Discussion had with patient at the bedside, verbalizes understanding, and plan for follow up care.
--- NOTE | 2022-01-06 10:01 | W.ANESPOSTOP ---
Postoperative Evaluation Date, Time and Location Date Performed: 01/06/22 Time Performed: 10:01 Patient Location: Day Surgery Unit Vital Signs Most Recent Imported Vital Signs: Most Recent Vital Signs Temp Pulse Resp BP Pulse Ox 36 C L 865 H 19 125/94 H 98 01/06/22 09:26 01/06/22 09:26 01/06/22 09:26 01/06/22 09:26 01/06/22 09:26 Pain Score Most Recent Pain Score: Most Recent Pain Score Pain Level 0 01/06/22 09:26 Assessment Mental Status: Awake (Alert & Oriented to Patient Baseline) Airway and Respiratory Function: Patent airway with normal (patient baseline) respiratory exam Cardiovascular Function: Hemodynamically Stable (Rate controlled) Hydration Status: Adequately Hydrated Nausea & Vomiting: No Nausea or Vomiting Pain: Pt. Denies Any Pain Peripheral Nerve Block: Patient did not receive a nerve block Teaching Patient Teaching: Advised to seek followup for the following concerns (See explanation) Concerns: New Onset Atrial Fibrillation and Other
[2022-01-06 10:30] VITALS: BP 106/63; PULSE 81; RESP 16; TEMP 36.1; O2SAT 96
== END 2022-01-06 11:00 | disposition home or self-care (01) ==
LOC: SUR 08:08
PROVIDERS: PCP Family Medicine; Visit Provider Surgery
PROC: 0DJD8ZZ Inspection of Lower Intestinal Tract, Via Natural or Artificial Opening Endoscopic (ICD-10-PCS; CPT 45378; principal; 2022-01-06 09:30)
DX: Z12.11 Encounter for screening for malignant neoplasm of colon (principal); Z53.09 Procedure and treatment not carried out because of other contraindication; I48.91 Unspecified atrial fibrillation
CPT/HCPCS: 45378

== ENCOUNTER 2022-01-10 07:40 | Outpatient (CLI) | payer BC, SELFPAY ==
--- NOTE | 2022-01-10 07:30 | RT.EKG_ITS ---
APPROVED REPORT Exam: Resting ECG Reason for Exam: A Flutter Patient Location: O HR:72 bpm ECG Measurements Heart Rate 72 AXIS VA 148 P 0 QRSd 106 QRS 10 QT 382 T 32 QTc 441 Conclusion Atrial fibrillation Poor R wave progression
== END 2022-01-10 07:41 | disposition home or self-care (01) ==
LOC: DI.CM 07:41
PROVIDERS: PCP Family Medicine; Visit Provider Family Medicine
DX: I49.8 Other specified cardiac arrhythmias (principal)
CPT/HCPCS: 93010

== ENCOUNTER 2022-01-16 03:48 | Outpatient (RCR) | payer BC, SELFPAY ==
--- NOTE | 2022-01-16 10:30 | HOLTER_ITS ---
APPROVED REPORT Conclusion This is a 24-hour Holter monitor ordered for atrial fibrillation Atrial fibrillation was present throughout with an average heart rate of 90. Minimum was 57, maximum heart rate was 203. Rates of about 150 were noted on multiple occasions There were rare ventricular ectopic beats There were no pauses greater than 3 seconds There were no apparent patient symptoms
== END 2022-01-23 23:59 | disposition home or self-care (01) ==
LOC: RT 03:48
PROVIDERS: PCP Family Medicine; Visit Provider Family Medicine
DX: I48.91 Unspecified atrial fibrillation (principal)
CPT/HCPCS: 93225; 93226

== ENCOUNTER 2022-01-16 10:41 | Outpatient (CLI) | payer BC, SELFPAY | END 2022-01-16 10:42 | disposition home or self-care (01) | LOC: LBO 10:43 | PROVIDERS: PCP Family Medicine; Visit Provider Family Medicine | DX: E03.9 Hypothyroidism, unspecified (principal); I48.91 Unspecified atrial fibrillation | CPT/HCPCS: 36415; 84443 ==

== ENCOUNTER → 2022-02-13 00:44 | Outpatient (CLI) | payer BC, SELFPAY ==
--- NOTE | 2022-02-13 10:45 | DI.US_ITS ---
APPROVED REPORT EXAM: Comprehensive 2D, Doppler, and color-flow Echocardiogram Patient Location: Out-Patient Manager Of Sustainability: Glenis Grady RDCS (AE) Indications: Atrial Fibrillation Other Information Study Quality: Adequate Conclusion Normal left ventricular wall thickness and chamber size. Estimated ejection fraction is 55 to 60%. Wall motion is normal Normal right ventricular size and systolic function Left atrium is mildly dilated. The right atrium is normal in size There is no structural or hemodynamically significant valvular disease Patient was in atrial fibrillation with a controlled rate throughout the study Wall motion Left Ventricle The left ventricle is normal size. The left ventricular systolic function is normal. The left ventric ular ejection fraction is within the normal range. There is normal left ventricular wall thickness. T here is normal LV segmental wall motion. There is no ventricular septal defect visualized. LVEF is 58 %. Right Ventricle The right ventricle is normal size. The right ventricular systolic function is normal. The RVSP is 18 .1 mmHg. Atria Left atrium is mildly dilated. The right atrium size is normal. The interatrial septum is intact with no evidence for an atrial septal defect. Aortic Valve The aortic valve is normal in structure. Aortic valve is trileaflet. There is no aortic valvular sten osis. No aortic regurgitation is present. Mitral Valve The mitral valve is normal in structure. No evidence of mitral valve stenosis. Trace mitral regurgita tion. Tricuspid Valve The tricuspid valve is normal in structure. There is no tricuspid valve stenosis. Trace tricuspid reg urgitation. Pulmonic Valve The pulmonary valve is normal in structure. There is no pulmonic valvular stenosis. Trace pulmonic re gurgitation. Great Vessels The aortic root is normal in size. The ascending aorta is normal in size. Aortic arch is normal in ca liber. IVC is normal in size and collapses >50% with inspiration. Pericardium There is no pericardial effusion. 2D Dimensions IVSD d PLAX 0.98 cm M: 0.6-1.2 LV Vol A2C d MOD 166.7 mL LVPW d PLAX 0.98 cm M: 0.6 - 1.2 LV Vol A4C d MOD 144.6 mL LVID d PLAX 5.49 cm M: 4.2 - 5.8 LA vol/ BSA A2C s A-L 33.7 mL/m2 LVDs 3.75 cm M: 2.5 - 4.0 LA vol/ BSA A4C s A-L 25.8 mL/m2 Ao Root d 2.93 cm M: 3.1 - 3.7 LA Vol/ BSA Biplane s A-L 29.9 mL/m2 RA Area A4C 16.95 cm2 LA Area A4C s MOD 22.85 cm2 RA Vol/ BSA A4C s A-L 15.5 mL/m2 LA Area A2C s MOD 25.78 cm2 Ao Asc Diam d 3.12 cm M: 2.6 - 3.4 LV EF A4C MOD 58.0 % LV EF Teichholz 58.2 % LV EF A2C MOD 57.4 % LVEF (Palma's) 58.12 % M: 52 - 72 LV EF Biplane MOD 58.1 % LV Volume 110.83 mL M: 62 - 150 SV 92.22 mL LV Volume Index 43.98 mL/m2 M: 34 - 74 SV Index 36.60 mL/m2 LV Vol Biplane MOD 158.7 mL FS 31.05 % M-Mode TAPSE 1.70 cm (M/F) >1.7 LV Diastology MV E' medial 0.141 (>0.07 m/s) MV E Vmax 0.84 (0.4-1.3 m/s) LV E/e MED 5.90 (<14) MV E' lateral 0.143 (>0.1 m/s) LV E/e LAT 5.80 (<14) MV E/E' medial 5.95 MV E/E' lateral 5.85 Aortic Valve LVOT Area 3.01 cm2 AoV Area Vmax 2.26 cm2 LVOT Vmax 1.15 m/s AoV Area/ BSA (Vmax) 0.90 cm2/m2 LVOT Mean Man. 0.74 m/s AMY Mean Man. 2.09 cm2 LVOT Peak Grad 5.3 mmHg AMY Mean Man. Index 0.83 cm2/m2 LVOT Mean Grad 2.6 mmHg LVOT VTI 0.219 m LVOT Diam s 1.95 cm AoV Vmax 1.53 m/s Velocity Ratio 0.75 AoV Mean Man. 1.07 m/s AoV Peak Grad 9.4 mmHg LVOT SV 65.98 mL AoV Mean Grad 5.2 mmHg AoV VTI 0.270 m AoV Area VTI 2.44 cm2 AoV Area/ BSA (VTI) 0.97 cm/m2 Mitral Valve MV DT 239 (160-240 msec) MV PHT 69 msec MV Area PHT 3.17 cm2 MV VTI 0.198 m MV Area VTI 3.34 (4.0-6.0 cm2) Pulmonary Valve PV Vmax 1.17 (0.5-1.5 m/s) RVOT Peak Gr. 2.12 mmHg PV Peak Grad 5.5 mmHg RVOT Mean Gr. 1.10 mmHg PV Mean Grad 3.2 mmHg RVOT VTI 0.163 m PV VTI 0.250 m RVOT Vmax 0.73 m/s Tricuspid Valve TR Peak Grad 15.0 mmHg TR Vmax 1.94 m/s RA Pressure 3.00 mmHg RVSP (TR) 18.1 mmHg
== END ==
PROVIDERS: PCP Family Medicine; Visit Provider Family Medicine
DX: I48.91 Unspecified atrial fibrillation (principal)
CPT/HCPCS: 93306

== ENCOUNTER 2022-03-20 12:46 | Outpatient (CLI) | payer BC, SELFPAY ==
--- NOTE | 2022-03-20 12:45 | RT.EKG_ITS ---
APPROVED REPORT Exam: Resting ECG Reason for Exam: NPW, BAseline needed Patient Location: O HR:87 bpm ECG Measurements Heart Rate 87 AXIS TN [id number] P [id number] QRSd 100 QRS 28 QT 368 T 45 QTc 443 Conclusion Atrial fibrillation...V-rate 64- 97, irreg A-activity Poor R wave progression
== END 2022-03-20 12:47 | disposition home or self-care (01) ==
LOC: DI.CARD 12:46
PROVIDERS: PCP Family Medicine; Visit Provider Internal Medicine Cardiovascular Disease
DX: I10 Essential (primary) hypertension; I48.91 Unspecified atrial fibrillation; I49.1 Atrial premature depolarization; R07.9 Chest pain, unspecified
CPT/HCPCS: 93010

== ENCOUNTER 2022-04-01 02:12 | Outpatient (CLI) | payer BC, SELFPAY ==
[2022-04-01 12:00] LABS: Abs Immature Grans 0.01 10^3/uL (0.0-0.06); Absolute Basophil Count 0.03 10^3/uL (0.0-0.2); Absolute Eosinophil Count 0.28 10^3/uL (0.0-0.7); Absolute Lymphocyte Count 1.73 10^3/uL (1.2-3.4); Absolute Monocyte Count 0.52 10^3/uL (0.1-0.8); Absolute Neutrophil Count 4.02 10^3/uL (1.2-6.7); Basophils % 0.5; Eosinophils % 4.2; HCT 47.9 % (40.0-50.0); HGB 16.6 g/dL (13.5-17.5); Immature Grans % 0.2; Lymphocytes % 26.3; MCH 31.7 pg (27.0-33.0); MCHC 34.7 % (32.0-36.0); MCV 91 fL (80-95); MPV 12.2 fL (8.0-11.0); Monocytes % 7.9; Neutrophils % 60.9; Platelet Count 171 10^3/uL (130-400); RBC 5.24 10^6/uL (4.36-5.78); RDW 11.9 % (11.8-14.1); RDW-SD 39.7 fL; WBC 6.59 10^3/uL (4.4-10.8)
[2022-04-01 12:44] LABS: Calculated LDL 69 mg/dL (<100); Cholesterol 183 mg/dL (<200); Ferritin 92 ng/mL (26-388); HDL Cholesterol 41 mg/dL (40-60); Triglyceride 367 mg/dL (<150)
== END 2022-04-01 02:13 | disposition home or self-care (01) ==
PROVIDERS: PCP Family Medicine; Visit Provider Family Medicine
DX: E78.5 Hyperlipidemia, unspecified (principal); Z00.00 Encounter for general adult medical examination without abnormal findings; E83.110 Hereditary hemochromatosis
CPT/HCPCS: 36415; 80061; 82728; 85025

== ENCOUNTER 2022-04-16 07:29 | Day surgery (SDC) | payer BC, SELFPAY ==
--- NOTE | 2022-04-16 06:42 | W.COLOREPORT ---
Colonoscopy Report Date of procedure: 04/16/22 Pre-op diagnosis general: colon cancer screening and Hx of polyps Post-op diagnosis procedure note: other (colon polyps) Procedure: Colonoscopy with polypectomy Surgeon: Mari Hernandez Anesthesia Type: General:No Airway Estimated blood loss (mL): 5 Pathology: other (ascending bx, ascending polyps x2, Transverse polyps x2, descending polyp and sigmoid polyp) Complications: None Disposition: same day Indications: The patient? is a pleasant 56 -year-old male who is here to discuss another screening colonoscopy.? His last colonoscopy was in 2019 and he was found to have a Tubulovillous adenoma.? He came in for colonoscopy in December but as soon as we placed monitors on him we noted that he was in A. fib.? This was a new diagnosis for him so the procedure was stopped.? He has had an echo and a Holter monitor since then and was seen by Dr. Swenson.? She has cleared him for the colonoscopy.? Plan is for him to then be on Xarelto for 4 weeks and then have a cardioversion hopefully.? He denies any changes in bowel habits, melena, hematochezia, unintentional weight loss or family history of colon cancer.? The procedure and risks were discussed.? The prep was reviewed in detail.? Risks, benefits and complications have been reviewed. Complications include but are not limited to bleeding, pain, perforation, missed small lesion/polyp, sore throat, aspiration and adverse reaction to the medications. Questions were entertained and answered to their satisfaction and they wished to proceed. No guarantees were given or implied. Prep: Miralax/Dulcolax Procedure Start Time: 09:15 Procedure End Time: :48 Retraction Time: 15 minutes Findings: 6 polyps Procedure Description: After informed consent was obtained the patient was taken to the procedure room and placed in a left decubitous position. Monitors were applied and a time out was done. The patients name, date of , procedure, allergies to medications and metal in their body was reviewed. The patient was then sedated. Once sedated and comfortable a rectal exam was done. External exam was normal. Internal exam revealed a normal sphincter tone and no palpable masses. The prostate was enlarged but smooth. The scope was then introduced and retro-flexed. No internal hemorrhoids, polyps or masses were identified on retro-flexion. The scope was then advanced to the cecum without difficulty. The ileocecal vlave and appendiceal orifice were identified. The prep was adequate. The scope was then slowly retracted over 15 minutes back into the rectum. Polyps were removed with cold forceps in the ascending colon x2, transverse colon, descending colon and sigmoid colon ; and with a cold snare in the transverse colon. There was no diverticulosis noted. The scope was removed and the patient was woken up and taken back to Same day surgery in stable condition. The patient tolerated the procedure well and there were no immediate complications.
--- NOTE | 2022-04-16 06:44 | W.PM.DSUDISC ---
Discharge Plan Disposition Patient Disposition: HOME Condition: Good Discharge Details Reason For Visit: colonoscopy Attending Provider: Mari Hernandez Primary Care Provider: Rosio Maki Home Meds and New Rx's Prescriptions: Continued ibuprofen 800 mg tablet 800 mg PO BID PRN (Reason: pain) Qty: 100 3RF Zyrtec 10 mg capsule 10 mg PO DAILY PRN oxybutynin chloride 5 mg tablet extended release 24hr 5 mg PO DAILY Qty: 90 4RF tamsulosin [Flomax] 0.4 mg capsule 0.8 mg PO DAILY Qty: 180 4RF sertraline 100 mg tablet 100 mg PO DAILY Qty: 90 3RF rivaroxaban 20 mg tablet 20 mg PO DAILY Qty: 90 3RF Rx Instructions: must administer with evening meal acetaminophen [Tylenol] 325 MG tablet 650 mg PO Q6H PRN PRN0RF losartan 25 mg tablet 25 mg PO HS atenolol 25 mg tablet 25 mg PO HS Discontinued bisacodyl [Dulcolax (bisacodyl)] 5 mg tablet,delayed release (DR/EC) 5 mg PO ONCE Qty: 4 0RF Rx Instructions: Take according to provider's instructions for colonoscopy prep. polyethylene glycol 3350 17 gram/dose powder 17 g PO ONCE Qty: 238 0RF Rx Instructions: To be taken as directed by prescriber's office for colonoscopy prep. Discharge Instructions Instructions: Colorectal Polyps (DC) Additional Instructions: Findings: 6 polyps Follow up: most likely 5 years Please call if you develop: fevers >101.5 Nausea or Vomiting Abdominal pain that is not transient Rectal bleeding that is more then a tbsp A hard abdomen and inability to pass gas DAY SURGERY UNIT POST ENDOSCOPY INSTRUCTIONS Instructions for everyone who is given Anesthesia: For your safety, please do the following for the next 24 Hours: a. Do not drive or operate dangerous equipment b. Do not drink alcohol beverages or use any recreational drugs for the first 24 hours or while taking pain medications. The medications in your body may have a reaction that can be dangerous. c. Do not make any important decisions or sign any important papers 1. Generally there are no restrictions on your activity after a day or so has gone by, but you may feel a bit fatigued for a few days. 2. After you arrive home you may have a light meal and return to a normal diet as you can tolerate it without feeling sick to your stomach. 3. After surgery, you may feel pain or discomfort. This should be only transient, but if it persists please contact your doctor. 4. If there are any questions regarding the findings of your procedure, please feel free to contact your doctor. 6. If you are unable to contact your doctor with a problem, contact the hospital at [phone]. 7. Continue all your regular medications unless directed otherwise. I understand the above instructions and have no questions. Signature of Patient or Responsible Adult Escort Date/Time Name of Responsible Adult Escort Signature of Nurse Date/Time Activity:: Activity as Tolerated Diet:: As Tolerated Discharge Orders Discharge Orders: Discharge Order (Routine); Ordered 04/16/22 Ordered By: Mari Hernandez
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
[2022-04-16 07:51] VITALS: BP 113/91; PULSE 81; RESP 16; TEMP 36.4; O2SAT 98
[2022-04-16] MEDS: Lactated Ringers 1,000 ML 80 ML IV (08:11)
[2022-04-16 08:50] VITALS: BMI 37.2
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
--- NOTE | 2022-04-16 09:30 | BOWEL_PTH ---
PATIENT: Khai Coyne LOC: [facility] U#:[id number] AGE/SX: 56/M ROOM: RE04/16/[address]: Mari Hernandez MD : 1965 BED: DIS: 04/16/2022 SPEC #: [id number] RECD: 04/16/22 12:52 STATUS: VERÓNICA REQ #: [id number] SELINA: 04/16/22 09:[address]: Mari Hernandez DEPT: Surgical Specimen RECD BY: Beba Magana ENTERED: 04/16/22 12:53 SP TYPE: Bowel OTHR DR: Rosio Maki Tissues: 1 - BIOPSY BOWEL 2 - BIOPSY BOWEL 3 - BIOPSY BOWEL 4 - BIOPSY BOWEL 5 - BIOPSY BOWEL Procedures: GROSS AND MICRO LEVEL 4 Comments: [id number]
[2022-04-16 09:57] VITALS: BP 105/74; PULSE 82; RESP 16; TEMP 36.6; O2SAT 95
--- NOTE | 2022-04-16 12:21 | W.ANESPOSTOP ---
Postoperative Evaluation Date, Time and Location Date Performed: 04/16/22 Time Performed: 09:59 Patient Location: Day Surgery Unit Vital Signs Most Recent Imported Vital Signs: Most Recent Vital Signs Temp Pulse Resp BP Pulse Ox 36.6 C 82 16 105/74 95 04/16/22 09:57 04/16/22 09:57 04/16/22 09:57 04/16/22 09:57 04/16/22 09:57 Pain Score Most Recent Pain Score: Most Recent Pain Score Pain Level 0 04/16/22 07:51 Assessment Mental Status: Awake (Alert & Oriented to Patient Baseline) Airway and Respiratory Function: Patent airway with normal (patient baseline) respiratory exam Cardiovascular Function: Hemodynamically Stable Hydration Status: Adequately Hydrated Nausea & Vomiting: No Nausea or Vomiting Pain: Pt. Denies Any Pain Peripheral Nerve Block: Patient did not receive a nerve block
== END 2022-04-16 10:48 | disposition home or self-care (01) ==
PROVIDERS: PCP Family Medicine; Visit Provider Surgery
PROC: 0DJD8ZZ Inspection of Lower Intestinal Tract, Via Natural or Artificial Opening Endoscopic (ICD-10-PCS; CPT 45378; principal; 2022-04-16 09:30)
DX: Z12.11 Encounter for screening for malignant neoplasm of colon (principal); K63.5 Polyp of colon; Z86.010 Personal history of colon polyps
CPT/HCPCS: 45385; 45380; 88305

== ENCOUNTER 2022-05-21 09:04 | Outpatient (CLI) | payer BC, SELFPAY ==
[2022-05-21 12:17] LABS: HCT 49.2 % (40.0-50.0); HGB 17.2 g/dL (13.5-17.5); MCH 31.4 pg (27.0-33.0); MCV 90 fL (80-95); MPV 12.8 fL (8.0-11.0); Platelet Count 168 10^3/uL (130-400); RBC 5.48 10^6/uL (4.36-5.78); RDW 12.3 % (11.8-14.1); RDW-SD 40.4 fL; WBC 6.23 10^3/uL (4.4-10.8)
[2022-05-21 12:49] LABS: ALT 55 U/L (16-63); AST 33 U/L (15-37); Albumin 3.8 g/dL (3.4-5.0); Alkaline Phosphatase 74 U/L (46-116); Anion Gap 5.4 mmol/L (3-11); BUN 17 mg/dL (7-18); Bilirubin, Total 0.6 mg/dL (0.2-1.0); CO2 26.6 mmol/L (21.0-32.0); Chloride 105 mmol/L (98-107); Estimated GFR 88.88 (mL/min/1.73m2); Ferritin 115 ng/mL (26-388); Glucose 103 mg/dL (74-106); Potassium 4.5 mmol/L (3.5-5.1); Sodium 137 mmol/L (136-145); Total Protein 7.4 g/dL (6.4-8.2)
== END 2022-05-21 09:05 | disposition home or self-care (01) ==
LOC: LOS 09:04
PROVIDERS: PCP Family Medicine; Referring Provider Family Medicine; Visit Provider Family Medicine
DX: E83.110 Hereditary hemochromatosis (principal); K76.0 Fatty (change of) liver, not elsewhere classified
CPT/HCPCS: 36415; 80053; 85027; 82728

== ENCOUNTER 2022-06-10 05:58 | Day surgery (SDC) | payer BC, SELFPAY ==
--- NOTE | 2022-06-10 06:00 | RT.EKG_ITS ---
APPROVED REPORT Exam: Resting ECG Reason for Exam: pre procedure Cardioversion Patient Location: O HR:61 bpm ECG Measurements Heart Rate 61 AXIS [place] [id number] P [id number] QRSd 106 QRS 13 QT 407 T 25 QTc 409 Conclusion Atrial fibrillation...V-rate 50- 77, irreg A-activity
[2022-06-10 06:29] VITALS: BP 133/97; PULSE 84; RESP 16; TEMP 36.2; O2SAT 97
[2022-06-10] MEDS: Normal Saline 1,000 ML 30 ML IV (06:51)
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
[2022-06-10 07:00] VITALS: BMI 36.4
--- NOTE | 2022-06-10 07:45 | RT.EKG_ITS ---
APPROVED REPORT Exam: Resting ECG Reason for Exam: post precedure Cardioversion Patient Location: O HR:57 bpm ECG Measurements Heart Rate 57 AXIS OK 210 P 45 QRSd 106 QRS 9 QT 453 T 18 QTc 441 Conclusion Sinus bradycardia...rate< 60 Supraventricular bigeminy...bigeminy string>4 w/ SV complexes Prolonged OK interval...OK >210, V-rate 50- 90
--- NOTE | 2022-06-10 07:54 | W.PM.DSUDISC ---
Date of service: 06/10/22 Time of Service: 08:05 Discharge Plan Disposition Patient Disposition: HOME Condition: Good Discharge Details Attending Provider: Reshma Swenson Primary Care Provider: Rosio Maki Home Meds and New Rx's Prescriptions: No Action ibuprofen 800 mg tablet 800 mg PO BID PRN (Reason: pain) Qty: 100 3RF Zyrtec 10 mg capsule 10 mg PO DAILY PRN oxybutynin chloride 5 mg tablet extended release 24hr 5 mg PO DAILY Qty: 90 4RF sertraline 100 mg tablet 100 mg PO DAILY Qty: 90 3RF atenolol 25 mg tablet 25 mg PO HS Qty: 90 1RF tamsulosin [Flomax] 0.4 mg capsule 0.8 mg PO DAILY Qty: 180 4RF acetaminophen [Tylenol] 325 MG tablet 650 mg PO Q6H PRN PRN0RF losartan 25 mg tablet 25 mg PO HS Hold Instructions: dizziness rivaroxaban 20 mg tablet 20 mg PO HS Rx Instructions: must administer with evening meal Discharge Instructions Stand Alone Forms: DSU Cardioversion Post-Op Discharge Orders Discharge Orders: Discharge Order (Routine); Ordered 06/10/22 Ordered By: Reshma Swenson
[2022-06-10 07:57] VITALS: BP 104/69; PULSE 63; RESP 16; TEMP 36; O2SAT 95
--- NOTE | 2022-06-10 08:06 | CARD_ITS ---
Date of service: 06/10/22 Time of Service: 08:06 Cardioversion DATE OF PROCEDURE: 06/10/22 PRE-OP DIAGNOSES: Atrial fibrillation POST-OP DIAGNOSES: same Indications: Atrial fibrillation for synchronized cardioversion Procedure Description: Synchronized cardioversion Patient was sedated under the direction of the anesthesia department. When adequate sedation was achieved he had anterior and posterior ZOLL pads placed. A single synchronized shock at 150 W seconds was delivered with lutheran of sinus rhythm in the 50s. Patient tolerated the procedure and was returned to the recovery area. He will be discharged when fully awake. No medication changes were recommended follow-up will be scheduled in 2 weeks
[2022-06-10 08:24] VITALS: BP 104/70; PULSE 56; RESP 14; TEMP 36.1; O2SAT 96
--- NOTE | 2022-06-10 09:37 | W.ANESPOSTOP ---
Postoperative Evaluation Date, Time and Location Date Performed: 06/10/22 Time Performed: 08:24 Patient Location: Day Surgery Unit Vital Signs Most Recent Imported Vital Signs: Most Recent Vital Signs Temp Pulse Resp BP Pulse Ox 36.1 C L 56 L 14 104/70 96 06/10/22 08:24 06/10/22 08:24 06/10/22 08:24 06/10/22 08:24 06/10/22 08:24 Pain Score Most Recent Pain Score: Most Recent Pain Score Pain Level 0 06/10/22 08:24 Assessment Mental Status: Awake (Alert & Oriented to Patient Baseline) Airway and Respiratory Function: Patent airway with normal (patient baseline) respiratory exam Cardiovascular Function: Hemodynamically Stable Hydration Status: Adequately Hydrated Nausea & Vomiting: No Nausea or Vomiting Pain: Pt. Denies Any Pain Peripheral Nerve Block: Patient did not receive a nerve block
== END 2022-06-10 09:33 | disposition home or self-care (01) ==
PROVIDERS: PCP Family Medicine; Visit Provider Internal Medicine Cardiovascular Disease
PROC: 5A2204Z Restoration of Cardiac Rhythm, Single (ICD-10-PCS; CPT 92960; principal; 2022-06-10 07:30)
DX: I48.91 Unspecified atrial fibrillation (principal); I10 Essential (primary) hypertension; E83.110 Hereditary hemochromatosis; K76.0 Fatty (change of) liver, not elsewhere classified
CPT/HCPCS: 92960; 93005; 93010; J2250; J2405

== ENCOUNTER 2022-06-24 08:54 | Outpatient (CLI) | payer BC, SELFPAY ==
--- NOTE | 2022-06-24 08:45 | RT.EKG_ITS ---
APPROVED REPORT Exam: Resting ECG Reason for Exam: afib Patient Location: O HR:61 bpm ECG Measurements Heart Rate 61 AXIS MA 197 P 64 QRSd 102 QRS 12 QT 435 T 20 QTc 439 Conclusion Sinus rhythm...normal P axis, V-rate 50- 99 Premature atrial contraction
== END 2022-06-24 08:55 | disposition home or self-care (01) ==
LOC: DI.CARD 08:54
PROVIDERS: PCP Family Medicine; Visit Provider Internal Medicine Cardiovascular Disease
DX: I48.91 Unspecified atrial fibrillation (principal)
CPT/HCPCS: 93010

== ENCOUNTER 2022-08-01 11:24 | Outpatient (REF) | payer BC, SELFPAY ==
[2022-08-01 11:01] LABS: Ferritin 170 ng/mL (26-388)
[2022-08-01 21:01] LABS: PSA, Diagnostic 1.9 ng/mL (<=3.5)
[2022-08-04 16:15] LABS: Testosterone, Total 565 ng/dL (240-950)
== END 2022-08-01 11:25 | disposition home or self-care (01) ==
LOC: LBN 11:24
PROVIDERS: PCP Family Medicine; Visit Provider Urology
DX: E83.110 Hereditary hemochromatosis (principal); N52.9 Male erectile dysfunction, unspecified; N40.1 Benign prostatic hyperplasia with lower urinary tract symptoms; Z80.42 Family history of malignant neoplasm of prostate
CPT/HCPCS: 84403; 82728; 84153

== ENCOUNTER 2022-11-26 08:12 | Outpatient (CLI) | payer BC, SELFPAY ==
[2022-11-26 13:20] LABS: Ferritin 98 ng/mL (26-388)
== END 2022-11-26 08:13 | disposition home or self-care (01) ==
LOC: LOS 08:13
PROVIDERS: PCP Family Medicine; Referring Provider Family Medicine; Visit Provider Family Medicine
DX: E83.110 Hereditary hemochromatosis (principal)
CPT/HCPCS: 36415; 82728

== ENCOUNTER 2022-12-16 10:15 | Outpatient (CLI) | payer BC, SELFPAY ==
--- NOTE | 2022-12-16 10:15 | RT.EKG_ITS ---
APPROVED REPORT Exam: Resting ECG Reason for Exam: afib Patient Location: O HR:45 bpm ECG Measurements Heart Rate 45 AXIS SC 188 P 55 QRSd 100 QRS 16 QT 425 T 27 QTc 368 Conclusion Sinus rhythm...normal P axis, V-rate 50- 99 Supraventricular bigeminy...bigeminy string>4 w/ SV complexes L V2-V6 Baseline wander in lead(s) V2
== END 2022-12-16 10:16 | disposition home or self-care (01) ==
LOC: DI.CARD 10:16
PROVIDERS: PCP Family Medicine; Visit Provider Internal Medicine Cardiovascular Disease
DX: I48.91 Unspecified atrial fibrillation (principal)
CPT/HCPCS: 93010

== ENCOUNTER 2023-03-24 21:51 | Outpatient (CLI) | payer BC, SELFPAY ==
[2023-03-24 18:24] LABS: ALT 79 U/L (16-63); AST 40 U/L (15-37); Alkaline Phosphatase 69 U/L (46-116); Anion Gap 9.4 mmol/L (3-11); BUN 16 mg/dL (7-18); Bilirubin, Total 0.5 mg/dL (0.2-1.0); CO2 25.6 mmol/L (21.0-32.0); Calcium 8.8 mg/dL (8.5-10.1); Calculated LDL 105 mg/dL (<100); Chloride 103 mmol/L (98-107); Cholesterol 210 mg/dL (<200); Estimated GFR 88.88 (mL/min/1.73m2); Ferritin 150 ng/mL (26-388); Glucose 89 mg/dL (74-106); HDL Cholesterol 37 mg/dL (40-60); Potassium 4.1 mmol/L (3.5-5.1); Sodium 138 mmol/L (136-145); Total Protein 7.1 g/dL (6.4-8.2); Triglyceride 342 mg/dL (<150)
== END 2023-03-24 21:52 | disposition home or self-care (01) ==
LOC: LBO 21:52
PROVIDERS: PCP Family Medicine; Visit Provider Family Medicine
DX: E78.1 Pure hyperglyceridemia (principal); Z00.00 Encounter for general adult medical examination without abnormal findings; Z13.6 Encounter for screening for cardiovascular disorders; E83.110 Hereditary hemochromatosis
CPT/HCPCS: 36415; 80053; 80061; 82728

== ENCOUNTER 2023-08-07 08:59 | Outpatient (CLI) | payer BC, SELFPAY ==
[2023-08-07 19:09] LABS: PSA, Diagnostic 2.1 ng/mL (<=3.5)
== END 2023-08-07 09:00 | disposition home or self-care (01) ==
LOC: LBO 08:59
PROVIDERS: PCP Family Medicine; Visit Provider Urology
DX: N40.1 Benign prostatic hyperplasia with lower urinary tract symptoms (principal); Z80.42 Family history of malignant neoplasm of prostate
CPT/HCPCS: 36415; 84153

== ENCOUNTER 2023-09-01 13:30 | Outpatient (CLI) | payer BC, SELFPAY ==
[2023-09-01 13:14] LABS: HCT 47.4 % (40.0-50.0); HGB 16.5 g/dL (13.5-17.5); MCH 31.7 pg (27.0-33.0); MCHC 34.8 % (32.0-36.0); MCV 91 fL (80-95); MPV 11.5 fL (8.0-11.0); Platelet Count 170 10^3/uL (130-400); RBC 5.21 10^6/uL (4.36-5.78); RDW-SD 40.5 fL; WBC 5.95 10^3/uL (4.4-10.8)
[2023-09-01 14:32] LABS: ALT 81 U/L (16-63); AST 46 U/L (15-37); Albumin 3.9 g/dL (3.4-5.0); Alkaline Phosphatase 66 U/L (46-116); Anion Gap 6.4 mmol/L (3-11); BUN 13 mg/dL (7-18); Bilirubin, Total 0.6 mg/dL (0.2-1.0); CO2 29.6 mmol/L (21.0-32.0); CREATININE 1.1 mg/dL (0.70-1.30); Calcium 8.9 mg/dL (8.5-10.1); Calculated LDL 138 mg/dL (<100); Chloride 105 mmol/L (98-107); Cholesterol 218 mg/dL (<200); Estimated GFR 78.79 (mL/min/1.73m2); Ferritin 221 ng/mL (26-388); HDL Cholesterol 45 mg/dL (40-60); Potassium 4.1 mmol/L (3.5-5.1); Sodium 141 mmol/L (136-145); Total Protein 7.8 g/dL (6.4-8.2); Triglyceride 178 mg/dL (<150)
[2023-09-01 14:42] LABS: Glucose 46 mg/dL (74-106)
[2023-09-02 10:47] LABS: Measles IgG Antibody Positive (See Note); Varicella IgG Antibody Positive (See Note)
[2023-09-02 10:50] LABS: Mumps Antibody IgG Negative (See Note)
[2023-09-02 10:52] LABS: Rubella IgG Ab (UVM) Positive (See Note)
[2023-09-03 12:09] LABS: TB Interpretation Negative (Negative)
== END 2023-09-01 13:31 | disposition home or self-care (01) ==
LOC: LBO 13:30
PROVIDERS: PCP Family Medicine; Visit Provider Family Medicine
DX: Z00.00 Encounter for general adult medical examination without abnormal findings (principal); E78.1 Pure hyperglyceridemia; E83.110 Hereditary hemochromatosis; K76.0 Fatty (change of) liver, not elsewhere classified; Z13.6 Encounter for screening for cardiovascular disorders; Z11.1 Encounter for screening for respiratory tuberculosis; Z11.59 Encounter for screening for other viral diseases; Z01.84 Encounter for antibody response examination
CPT/HCPCS: 36415; 80053; 80061; 85027; 86787; 82728; 86480; 86735; 86762; 86765

== ENCOUNTER 2024-01-14 01:06 | Outpatient (CLI) | payer BC, SELFPAY ==
[2024-01-14 10:13] LABS: Abs Immature Grans 0.02 10^3/uL (0.0-0.06); Absolute Basophil Count 0.03 10^3/uL (0.0-0.2); Absolute Eosinophil Count 0.19 10^3/uL (0.0-0.7); Absolute Lymphocyte Count 1.84 10^3/uL (1.2-3.4); Absolute Monocyte Count 0.47 10^3/uL (0.1-0.8); Absolute Neutrophil Count 4.22 10^3/uL (1.2-6.7); Basophils % 0.4 %; Eosinophils % 2.8 %; HCT 47.9 % (40.0-50.0); HGB 16.5 g/dL (13.5-17.5); Immature Grans % 0.3 %; Lymphocytes % 27.2 %; MCH 31.5 pg (27.0-33.0); MCHC 34.4 % (32.0-36.0); MCV 92 fL (80-95); MPV 11.7 fL (8.0-11.0); Monocytes % 6.9 %; Neutrophils % 62.4 %; Platelet Count 169 10^3/uL (130-400); RBC 5.23 10^6/uL (4.36-5.78); RDW-SD 40.5 fL; WBC 6.77 10^3/uL (4.4-10.8)
[2024-01-14 11:19] LABS: Hemoglobin A1C 5.5 % (<5.7)
[2024-01-14 11:36] LABS: ALT 76 U/L (16-63); AST 36 U/L (15-37); Albumin 3.9 g/dL (3.4-5.0); Alkaline Phosphatase 85 U/L (46-116); Anion Gap 9.6 mmol/L (3-11); BUN 18 mg/dL (7-18); Bilirubin, Total 0.63 mg/dL (0.2-1.0); CO2 26.4 mmol/L (21.0-32.0); CREATININE 1.1 mg/dL (0.70-1.30); Calcium 9.1 mg/dL (8.5-10.1); Chloride 106 mmol/L (98-107); Estimated GFR 78.79 (mL/min/1.73m2); Ferritin 274 ng/mL (26-388); Glucose 107 mg/dL (74-106); Sodium 142 mmol/L (136-145); Total Protein 7.4 g/dL (6.4-8.2)
== END 2024-01-14 01:07 | disposition home or self-care (01) ==
LOC: LBO 01:06
PROVIDERS: PCP Family Medicine; Visit Provider Family Medicine
DX: Z00.00 Encounter for general adult medical examination without abnormal findings (principal); K76.0 Fatty (change of) liver, not elsewhere classified; R73.01 Impaired fasting glucose; E66.01 Morbid (severe) obesity due to excess calories; Z68.41 Body mass index [BMI] 40.0-44.9, adult; E83.110 Hereditary hemochromatosis
CPT/HCPCS: 36415; 80053; 82728; 83036; 85025

== ENCOUNTER 2024-03-30 04:23 | Emergency (ER) | payer OTHER, SELFPAY ==
[2024-03-30 04:28] VITALS: BP 167/133; PULSE 82; RESP 24; O2SAT 96
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
[2024-03-30] MEDS: Ketorolac 15 MG/ML VIAL IVP (04:50)
[2024-03-30] MEDS: Cyclobenzaprine 10 MG TAB PO (04:50)
[2024-03-30] MEDS: Acetaminophen 500 MG TAB 1000 MG PO (04:50)
[2024-03-30] MEDS: Lidocaine 5% Patch 2 PATCH TP ×2 (04:50→05:56)
[2024-03-30 05:34] VITALS: BP 129/83; PULSE 66; RESP 18; O2SAT 96
[2024-03-30] MEDS: Cyclobenzaprine 10 MG TAB, 3 TABS/BTL PO (05:55)
[2024-03-30] MEDS: Dexamethasone 4 MG TAB 10 MG PO (05:56)
== END 2024-03-30 05:58 | disposition home or self-care (01) ==
PROVIDERS: Emergency Provider Student in an Organized Health Care Education/Training Program; PCP Family Medicine
DX: M54.50 Low back pain, unspecified (principal); I48.91 Unspecified atrial fibrillation; E83.119 Hemochromatosis, unspecified; F17.290 Nicotine dependence, other tobacco product, uncomplicated; Z86.718 Personal history of other venous thrombosis and embolism; Z86.711 Personal history of pulmonary embolism
CPT/HCPCS: 99283; J1885; J8540

== ENCOUNTER 2024-06-14 10:44 | Outpatient (CLI) | payer BC, SELFPAY ==
--- NOTE | 2024-06-14 10:30 | RT.EKG_ITS ---
APPROVED REPORT Exam: Resting ECG Reason for Exam: HTN Patient Location: O HR:64 bpm ECG Measurements Heart Rate [address] [place] [id number] P [id number] QRSd 109 QRS 22 QT 415 T 30 QTc 428 Conclusion Atrial fibrillation...V-rate 61- 68, irreg A-activity
== END 2024-06-14 10:45 | disposition home or self-care (01) ==
LOC: DI.CARD 10:46
PROVIDERS: PCP Family Medicine; Visit Provider Internal Medicine Cardiovascular Disease
DX: I48.0 Paroxysmal atrial fibrillation (principal)
CPT/HCPCS: 93010

== ENCOUNTER 2024-08-12 11:30 | Outpatient (CLI) | payer BC, SELFPAY ==
[2024-08-12 12:31] LABS: Abs Immature Grans 0.01 10^3/uL (0.0-0.06); Absolute Basophil Count 0.03 10^3/uL (0.0-0.2); Absolute Eosinophil Count 0.16 10^3/uL (0.0-0.7); Absolute Monocyte Count 0.47 10^3/uL (0.1-0.8); Absolute Neutrophil Count 3.88 10^3/uL (1.2-6.7); Basophils % 0.5 %; Eosinophils % 2.6 %; HCT 48.2 % (40.0-50.0); HGB 16.8 g/dL (13.5-17.5); Immature Grans % 0.2 %; Lymphocytes % 27.2 %; MCH 32.1 pg (27.0-33.0); MCHC 34.9 % (32.0-36.0); MCV 92 fL (80-95); MPV 11.9 fL (8.0-11.0); Monocytes % 7.5 %; Platelet Count 179 10^3/uL (130-400); RBC 5.24 10^6/uL (4.36-5.78); RDW 12.1 % (11.8-14.1); RDW-SD 40.9 fL; WBC 6.25 10^3/uL (4.4-10.8)
[2024-08-12 13:12] LABS: ALT 77 U/L (16-63); AST 43 U/L (15-37); Alkaline Phosphatase 80 U/L (46-116); Anion Gap 7.7 mmol/L (3-11); BUN 20 mg/dL (7-18); Bilirubin, Total 0.54 mg/dL (0.2-1.0); CO2 28.3 mmol/L (21.0-32.0); CREATININE 1.2 mg/dL (0.70-1.30); Calcium 9.4 mg/dL (8.5-10.1); Chloride 104 mmol/L (98-107); Estimated GFR 70.53 (mL/min/1.73m2); Ferritin 370 ng/mL (26-388); Glucose 102 mg/dL (74-106); Potassium 4.1 mmol/L (3.5-5.1); Sodium 140 mmol/L (136-145); Total Protein 7.7 g/dL (6.4-8.2)
[2024-08-15 09:27] LABS: PSA, Diagnostic 2.5 ng/mL (<=3.5)
== END 2024-08-12 11:31 | disposition home or self-care (01) ==
LOC: LBO 11:33
PROVIDERS: Urology; PCP Family Medicine; Visit Provider Family Medicine
DX: Z80.42 Family history of malignant neoplasm of prostate (principal); N40.1 Benign prostatic hyperplasia with lower urinary tract symptoms; N41.1 Chronic prostatitis; G89.4 Chronic pain syndrome; Z87.898 Personal history of other specified conditions; Z00.00 Encounter for general adult medical examination without abnormal findings; I10 Essential (primary) hypertension; E83.110 Hereditary hemochromatosis
CPT/HCPCS: 36415; 80053; 82728; 84153; 85025

== ENCOUNTER 2024-12-28 09:42 | Outpatient (CLI) | payer BC, SELFPAY ==
--- NOTE | 2024-12-28 09:30 | RT.EKG_ITS ---
APPROVED REPORT Exam: Resting ECG Reason for Exam: afib Patient Location: O HR:53 bpm ECG Measurements Heart Rate [address] [place] [id number] P [id number] QRSd 107 QRS 23 QT 410 T 36 QTc 385 Conclusion Atrial fibrillation...V-rate 47- 60, irreg A-activity Borderline low voltage, extremity leads...all extremity leads <0.6mV
== END 2024-12-28 09:43 | disposition home or self-care (01) ==
LOC: DI.CARD 09:42
PROVIDERS: PCP Family Medicine; Visit Provider Internal Medicine Cardiovascular Disease
DX: I48.91 Unspecified atrial fibrillation (principal)
CPT/HCPCS: 93010

== ENCOUNTER 2025-01-04 01:45 | Outpatient (CLI) | payer BC, SELFPAY ==
--- NOTE | 2025-01-04 07:30 | DI.US_ITS ---
APPROVED REPORT EXAM: Comprehensive 2D, Doppler, and color-flow Echocardiogram Patient Location: Out-Patient Port Engineer: Branden Cosby RDCS (AE) Indications: Afib Other Information Study Quality: Adequate Conclusion Mild concentric left ventricular hypertrophy. Ejection fraction 60 to 65%. Wall motion is normal Normal right ventricular size and function Moderately enlarged left atrium. Normal right atrial size Aortic valve is mildly sclerotic and trileaflet without stenosis or regurgitation Normal mitral valve with mild regurgitation Estimated right ventricular systolic pressure is 24 mmHg Wall motion Left Ventricle The left ventricle is normal size. The left ventricular systolic function is normal. The left ventricular ejection fraction is within the normal range. Mild concentric left ventricular hypertrophy. There is normal LV segmental wall motion. There is no ventricular septal defect visualized. LVEF is 60-65%. Right Ventricle The right ventricle is normal size. The right ventricular systolic function is normal. Atria Left atrium is moderately dilated. The right atrium size is normal. The interatrial septum is intact with no evidence for an atrial septal defect. Aortic Valve The aortic valve is mildly sclerotic. There is no aortic valvular stenosis. No aortic regurgitation is present. Mitral Valve The mitral valve is normal in structure. No evidence of mitral valve stenosis. Mild mitral regurgitation. Tricuspid Valve The tricuspid valve is normal in structure. There is no tricuspid valve stenosis. Trace tricuspid regurgitation. The RVSP is 24 mmHg. Pulmonic Valve The pulmonary valve is normal in structure. There is no pulmonic valvular stenosis. Trace pulmonic regurgitation. Great Vessels The aortic root is normal in size. The ascending aorta is normal in size. Aortic arch is normal in caliber. IVC is normal in size and collapses >50% with inspiration. Pericardium There is no pericardial effusion. 2D Dimensions IVSD d PLAX 1.22 cm M: 0.6-1.2 Ao Root d 3.44 cm M: 3.1 - 3.7 LVPW d PLAX 1.17 cm M: 0.6 - 1.2 Ao Asc Diam d 3.18 cm M: 2.6 - 3.4 LVID d PLAX 5.61 cm M: 4.2 - 5.8 LVDs 3.63 cm M: 2.5 - 4.0 LV EF Teichholz 64.1 % FS 35.34 % LV EDV (Teich) 154.5 mL LV ESV (Teich) 55.5 mL Stroke Vol Index (Teich) 40.58 M-Mode TAPSE 1.93 cm (M/F) >1.7 Auto EF LV EDV A4C 136.4 mL LV EDV A2C 167.8 mL LV EDV BP 150.6 mL LV ESV A4C 54.7 mL LV ESV A2C 67.1 mL LV ESV BP 60.9 mL LVEF(%) A4C 59.9 % LVEF(%) A2C 60.0 % LVEF(%) BP 59.5 % LV SV A4C 81.8 ml LV SV A2C 100.7 ml LV SV BP 89.7 ml LV CO A4C 5.3 L/min LV CO A2C 8.0 L/min LV CO BP 6.7 L/min HR A4C 65.22 BPM HR A2C 79.65 BPM LV EDV Index (BP) LA Volume LA Length A4C 5.1 cm LA Length A2C 6.3 cm LA Area A4C s 16.40 cm2 LA Area A2C s 22.23 cm2 LA Vol A4C A-L 44.50 mL LA Vol A2C A-L 66.19 mL LA Vol Biplane A-L 60.3 mL LA Vol/BSA A4C A-L LA Vol/BSA A2C A-L LA Vol/BSA BP A-L 24.7 mL/m2 LA Vol A4C MOD 43.5 mL LA Vol A2C MOD 64.8 mL LA Vol BP MOD 58.7 mL RA Volume RA Area A4C 10.0 cm2 RA ESV A4C (A-L) 18.3mL RA Vol/BSA A4C A-L RA Length A4C 4.7 cm RA ESV A4C (MOD) 16.8mL LV Diastology MV E' medial 0.118 (>0.07 m/s) MV E Vmax 0.87 (0.4-1.3 m/s) MV E/E' MED 7.36 (<14) MV E' lateral 0.116 (>0.1 m/s) MV E/E' LAT 7.47 (<14) MV E' Average 0.117 m/s MV E/E'(average) 7.42 Aortic Valve AoV Vmax 0.93 m/s LVOT Vmax 0.72 m/s AoV Peak Grad 3.5 mmHg LVOT Peak Grad 2.1 mmHg AoV Area (Vmax) 3.01 cm2 LVOT VTI 0.144 m AoV VTI 0.177 m LVOT Mean Grad 1.2 mmHg AoV Mean Man. 0.64 m/s LVOT SV 56.12 mL AoV Mean Grad 1.9 mmHg LVOT Diam s 2.20 cm AoV Area (VTI) 3.18 cm2 AV Regurg Peak Gr. 3.48 mmHg Velocity Ratio 0.77 Mitral Valve MV DT 172 (160-240 msec) Pulmonary Valve PV Vmax 0.85 (0.5-1.5 m/s) RVOT Vmax 0.55 m/s PV Peak Grad 2.9 mmHg RVOT Peak Gr. 1.2 mmHg PV Mean Man 0.67 m/s RVOT VTI 0.122 m PV Mean Grad 1.9 mmHg RVOT Mean Gr. 0.7 mmHg Tricuspid Valve RA Pressure 3.00 mmHg TR Vmax 2.29 m/s TR Peak Grad 21.0 mmHg RVSP (TR) 24.0 mmHg
== END 2025-01-04 02:05 ==
LOC: DI 01:45
PROVIDERS: PCP Family Medicine; Visit Provider Internal Medicine Cardiovascular Disease
DX: I48.0 Paroxysmal atrial fibrillation (principal)
CPT/HCPCS: 93306

== ENCOUNTER 2025-01-09 13:34 | Outpatient (CLI) | payer BC, SELFPAY ==
--- NOTE | 2025-01-09 13:15 | DI.RAD_ITS ---
Exam(s) XR ANKLE RT COMPLETE XR FOOT RT COMPLETE EXAM: XR ANKLE RT COMPLETE CLINICAL HISTORY: R ANKLE PAIN. TECHNIQUE: 2D digital imaging was performed. Three views of the ankle and foot. COMPARISON: CR XR ANKLE RT COMPLETE from 02/22/2021 CR XR FOOT RT COMPLETE from 01/09/2025 FINDINGS: BONES: No acute fracture is present. No bony destructive lesion is seen. Fixation plate is noted along the lateral malleolus. There is smoothly marginated bony density beneath the tip of the medial malleolus which appears old. There is plantar calcaneal spur. JOINTS: The ankle mortise is normally aligned. There are mild degenerative changes of the foot and ankle. SOFT TISSUE: Edema around the malleoli. IMPRESSION: No acute abnormality in the foot or ankle. DATA REPOSITORY: RADIATION DOSE DELIVERED:
== END 2025-01-09 13:35 | disposition home or self-care (01) ==
LOC: DIORS 13:34
PROVIDERS: PCP Family Medicine; Referring Provider Family Medicine; Visit Provider Student in an Organized Health Care Education/Training Program
DX: M25.571 Pain in right ankle and joints of right foot
CPT/HCPCS: 73610; 73630

== ENCOUNTER 2025-02-16 02:49 | Outpatient (CLI) | payer BC, SELFPAY ==
[2025-02-16 15:56] LABS: Abs Immature Grans 0.05 10^3/uL (0.0-0.06); HCT 46.0 % (40.0-50.0); HGB 16.1 g/dL (13.5-17.5); Immature Grans % 0.5 %; MCH 31.7 pg (27.0-33.0); MCHC 35.0 % (32.0-36.0); MCV 91 fL (80-95); MPV 12.1 fL (8.0-11.0); Platelet Count 175 10^3/uL (130-400); RBC 5.08 10^6/uL (4.36-5.78); RDW 12.1 % (11.8-14.1); RDW-SD 40.1 fL; WBC 9.45 10^3/uL (4.4-10.8)
[2025-02-16 16:42] LABS: ALT 91 U/L (16-63); AST 44 U/L (15-37); Albumin 4.1 g/dL (3.4-5.0); Alkaline Phosphatase 85 U/L (46-116); Anion Gap 11.1 mmol/L (3-11); BUN 21 mg/dL (7-18); Bilirubin, Total 0.6 mg/dL (0.2-1.0); CO2 23.9 mmol/L (21.0-32.0); Calcium 9.5 mg/dL (8.5-10.1); Chloride 103 mmol/L (98-107); Estimated GFR 70.53 (mL/min/1.73m2); Ferritin 311 ng/mL (26-388); Glucose 112 mg/dL (74-106); Potassium 4.2 mmol/L (3.5-5.1); Sodium 138 mmol/L (136-145); Total Protein 7.5 g/dL (6.4-8.2)
== END 2025-02-16 02:50 | disposition home or self-care (01) ==
LOC: LBO 02:49
PROVIDERS: PCP Family Medicine; Visit Provider Family Medicine
DX: Z00.00 Encounter for general adult medical examination without abnormal findings (principal); I10 Essential (primary) hypertension; E83.110 Hereditary hemochromatosis
CPT/HCPCS: 36415; 80053; 82728; 85025